=== PATIENT | female | born 1995 | race Caucasian/White ===

== ENCOUNTER 2020-06-18 09:19 | Emergency (ER) | payer OTHER ==
[2020-06-18] MEDS ORDERED: MORPHINE 4 MG/ML SYR ONE (10:28)
[2020-06-18] MEDS ORDERED: ONDANSETRON 4 MG/2 ML VIAL ONE (10:28)
[2020-06-18] MEDS ORDERED: NA CHLORIDE 0.9% 1,000 ML ONE (10:29)
[2020-06-18 10:57] LABS: Absolute Lymphocytes (CBC) 0.6 K/uL (0.7-4.9); Basophils % 0.7 % (0-1.3); Hematocrit 32.8 % (36.0-45.0); Lymphocytes % 3.9 % (15.3-44.8); MPV 9.1 fL (7.6-11.3); RBC Red Blood Cell Count 3.85 M/uL (3.86-4.86)
[2020-06-18 11:07] LABS: ALT/SGPT 19 U/L (12-78); AST/SGOT 18 U/L (15-37); Albumin 3.4 g/dL (3.4-5.0); Alkaline Phosphatase 71 U/L (45-117); BUN Blood Urea Nitrogen 10 mg/dL (7-18); Bicarbonate 22 mmol/L (21-32); Bilirubin Direct < 0.1 mg/dL (0-0.2); Bilirubin Total 0.3 mg/dL (0.2-1.0); Glucose Level 92 mg/dL (74-106); Lipase 60 U/L (73-393); Potassium 3.6 mmol/L (3.5-5.1); Protein, Total 7.7 g/dL (6.4-8.2); Sodium Level 139 mmol/L (136-145)
--- NOTE | 2020-06-18 11:36 | RAD REPORT ---
EXAM DESCRIPTION: CT - Abdomen Pelvis W Contrast - 06/18/2020 11:18 am CLINICAL HISTORY: ABD PAIN COMPARISON: No comparisons TECHNIQUE: Biphasic, helical CT imaging of the abdomen and pelvis was performed following 100 ml non -ionic IV contrast. No oral contrast. All CT scans are performed using dose optimization technique as appropriate and may include automated exposure control or mA/KV adjustment according to patient size. FINDINGS: No suspicious findings in the lung bases. The liver, spleen, and pancreas show no suspicious findings. Gallbladder and biliary tree are also wi thout suspicious finding. Renal function is symmetric. No hydronephrosis. No obstructing or nonobstructing calculi. Several sma ll renal cysts are present. There is some additional heterogeneity and diminished attenuation in the right renal parenchyma. No solid mass lesion of either kidney. There is questionable trace fluid aime cent to the right kidney. Urinary bladder is mostly contracted. Narvaez are prominent. This is difficul t to further evaluate in the setting of low bladder volume. No adrenal abnormalities. No gastric dilatation or wall thickening. No dilated large or small bowel loops. Moderate stool volum e is present throughout the colon. Patient has a paucity of intraabdominal fat. This causes crowding of all the abdominal and pelvic structures diminishing well-defined boundaries. Several fluid filled nondilated small bowel loops are present. The fluid-filled tubular structures are favored to be bowel rather than fallopian tube dilatation. A 3 x 2 centimeter fluid attenuation in the anterior right lo wer quadrant is probably part of fluid filled bowel rather than an ovarian or paraovarian cyst. The a ppendix is not optimally visualized but does appear to be normal in size along the right lateral pelv ic side wall. No free air or pneumatosis. No abnormal free fluid collections seen. Uterine abnormality is not adam pected. No hernia, mass or bulky lymphadenopathy. No suspicious bony findings. IMPRESSION: Slight heterogeneity of the right renal parenchyma is present along with mildly accentua sean urinary bladder narvaez. Correlation is needed with any history or lab findings that would indicate mild pyelonephritis and cystitis. Patient has some fluid-filled small bowel loops and a prominent amount of stool filling but not dilat ing the colon. Appendix is not optimally visualize ; however, acute appendicitis is not suspected.
[2020-06-18 11:49] LABS: Urine Bacteria LOADED /HPF (<20); Urine Culture Reflex Order REFLEXED
--- NOTE | 2020-06-18 11:58 | ER ---
Nurse's Notes [facility] Name: Zack Mansfield Age: 24 yrs Sex: Female : 1995 Arrival Date: 06/18/2020 Time: : Bed 5 Private MD: Diagnosis: Acute tubulo-interstitial nephritis-right pyelonephritis Presentation: 06/18 09:40 Chief complaint: Patient states: RLQ pain radiating through back X 2 days, vomiting iw Friday, fever yesterday, no urinary s/s. Coronavirus screen: At this time, the client does not indicate any symptoms associated with coronavirus-19. Ebola Screen: Patient negative for fever greater than or equal to 101.5 degrees Fahrenheit, and additional compatible Ebola Virus Disease symptoms Patient denies exposure to infectious person. Patient denies travel to an Ebola-affected area in the 21 days before illness onset. No symptoms or risks identified at this time. Initial Sepsis Screen: Does the patient meet any 2 criteria? HR > 90 bpm. Does the patient have a suspected source of infection? No. Patient's initial sepsis screen is negative. Risk Assessment: Do you want to hurt yourself or someone else? Patient reports no desire to harm self or others. Onset of symptoms was June 16, 2020. 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 - Social history:: Smoking status: Patient denies any tobacco usage or history of. Screenin:34 Abuse screen: Denies threats or abuse. Denies injuries from another. Nutritional ph screening: No deficits noted. Tuberculosis screening: No symptoms or risk factors identified. Fall Risk None identified. Assessment: 09:48 General: Appears in no apparent distress. uncomfortable, slender, well groomed, ph Behavior is calm, cooperative, appropriate for age, Reports chills for fever for 2-3 days. Pain: Complains of pain in posterior aspect of right lateral abdomen, anterior aspect of right lateral abdomen and right lower quadrant. Neuro: Level of Consciousness is awake, alert, obeys commands, Oriented to person, place, time, situation. Cardiovascular: Capillary refill < 3 seconds in bilateral fingers Patient's skin is warm and dry. GI: Abdomen is flat, non-distended, Abdomen is tender to palpation in posterior aspect of right lateral abdomen, anterior aspect of right lateral abdomen and right lower quadrant Reports lower abdominal pain, nausea, Patient currently denies diarrhea, vomiting. : Reports pain in right flank(s), lower quadrant(s) in lower back Denies burning with urination, urinary frequency. Derm: Skin is intact, is healthy with good turgor, Skin is pink, warm \T\ dry. Musculoskeletal: Circulation, motion, and sensation intact. Range of motion: intact in all extremities. 11:37 Reassessment: Patient appears in no apparent distress at this time. Patient and/or ph family updated on plan of care and expected duration. Pain level reassessed. Patient is alert, oriented x 3, equal unlabored respirations, skin warm/dry/pink. 12:15 Reassessment: Patient appears in no apparent distress at this time. Patient and/or ph family updated on plan of care and expected duration. Pain level reassessed. Patient is alert, oriented x 3, equal unlabored respirations, skin warm/dry/pink. D/C pending completion of IV fluids, approx 300 cc left in bag. Vital Signs: 09:40 BP 115 / 88; Pulse 109; Resp 16 S; Temp 100(TE); Pulse Ox 99% on R/A; Weight 61.23 kg; iw Height 5 ft. 9 in. (175.26 cm); Pain 8/10; 10:30 BP 98 / 68; Pulse 91; Resp 18; Pulse Ox 100% on R/A; ph 11:37 BP 113 / 67; Pulse 82; Resp 18; Pulse Ox 100% on R/A; ph 12:17 BP 111 / 64; Pulse 79; Resp 18; Temp 98.9; Pulse Ox 100% on R/A; ph 09:40 Body Mass Index 19.94 (61.23 kg, 175.26 cm) iw ED Course: 09:26 Patient arrived in ED. mr 09:34 Johnson, Carmenza, RN is Primary Nurse. ph 09:35 Patient has correct armband on for positive identification. Placed in gown. Bed in low ph position. Call light in reach. Side rails up X 1. Pulse ox on. NIBP on. Door closed. Noise minimized. 09:38 Vazquez Corbin NP is PHCP. pm1 09:38 Garth Beckwith MD is Attending Physician. pm1 09:42 Triage completed. iw 09:44 Arm band placed on. iw 10:25 Inserted saline lock: 20 gauge in left antecubital area, using aseptic technique. Blood ph collected. 12:43 No provider procedures requiring assistance completed. IV discontinued, intact, ph bleeding controlled, No redness/swelling at site. Pressure dressing applied. Administered Medications: 10:28 Drug: Zofran (Ondansetron) 4 mg Route: IVP; Site: right antecubital; ph 11:35 Follow up: Response: No adverse reaction; Nausea is decreased ph 10:30 Drug: morphine 4 mg Route: IVP; Site: right antecubital; ph 11:34 Follow up: Response: No adverse reaction; Pain is decreased; RASS: Alert and Calm (0) ph 11:15 Drug: NS 0.9% 1000 ml Route: IV; Rate: 1000 ml; Site: left antecubital; ph 12:40 Follow up: Response: No adverse reaction; IV Status: Completed infusion; IV Intake: ph 1000ml 12:00 Drug: Rocephin 1 grams Route: IV; Rate: calculated rate; Site: left antecubital; ph 12:39 Follow up: Response: No adverse reaction; IV Status: Completed infusion ph 12:15 Drug: Hydrocodone-Acetaminophen (7.5 mg-325 mg) 1 tabs Route: PO; ph 12:40 Follow up: Response: No adverse reaction; Pain is decreased; RASS: Alert and Calm (0) ph Intake: 12:40 IV: 1000ml; Total: 1000ml. ph Outcome: 11:58 Discharge ordered by . pm1 12:43 Discharged to home ambulatory, with significant other. ph 12:43 Condition: improved 12:43 Discharge instructions given to patient, Instructed on discharge instructions, follow up and referral plans. medication usage, Demonstrated understanding of instructions, follow-up care, medications, Prescriptions given X 3. 12:43 Patient left the ED. ph Addendum: 06/21/2020 07:41 Addendum: Culture Results: Positive urine culture. No further action required. Bacteria s s sensitive to prescribed antibiotic. Signatures: Izzy Dominguez Irene, RN MCKENNA Ann Barrett RN RN Carmenza Johnson, RN RN Vazquez Corbin, PUTTYING AND CALKING SUPERVISOR PUTTYING AND CALKING SUPERVISOR pm1
--- NOTE | 2020-06-18 11:58 | EDPHYS ---
Physician Documentation [facility] Name: Zack Mansfield Age: 24 yrs Sex: Female : 1995 Arrival Date: 06/18/2020 Time: : Bed 5 Private MD: ED Physician Garth Beckwith HPI: 06/18 11:34 This 24 yrs old Female presents to ER via Ambulatory with complaints of pm1 Abdominal Pain. 11:34 The patient presents with abdominal pain right lower quadrant. Onset: The pm1 symptoms/episode began/occurred 2 day(s) ago. The symptoms do not radiate. Associated signs and symptoms: Pertinent positives: fever, nausea, Pertinent negatives: dysuria. The symptoms are described as sharp. Modifying factors: The symptoms are alleviated by leaning forward. Severity of pain: in the emergency department the pain is actually worse. The patient has not experienced similar symptoms in the past. The patient has not recently seen a physician, and does not have an established primary care provider, Was planning to see Dr. Leger to establish care. 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 - Social history:: Smoking status: Patient denies any tobacco usage or history of. ROS: 11:36 Eyes: Negative for injury, pain, redness, and discharge. pm1 11:36 Cardiovascular: Negative for chest pain, palpitations, and edema, Respiratory: Negative for shortness of breath, cough, wheezing, and pleuritic chest pain. 11:36 Back: Negative for injury and pain, : Negative for injury, bleeding, discharge, and swelling, MS/Extremity: Negative for injury and deformity, Skin: Negative for injury, rash, and discoloration, Neuro: Negative for headache, weakness, numbness, tingling, and seizure. 11:36 Constitutional: Positive for fever, Negative for poor PO intake. 11:36 Abdomen/GI: Positive for abdominal pain, nausea and vomiting, Negative for constipation. Exam: 11:36 Constitutional: This is a well developed, well nourished patient who is awake, alert, pm1 and in no acute distress. Head/Face: Normocephalic, atraumatic. 11:36 Skin: Warm, dry with normal turgor. Normal color with no rashes, no lesions, and no evidence of cellulitis. MS/ Extremity: Pulses equal, no cyanosis. Neurovascular intact. Full, normal range of motion. 11:36 Cardiovascular: Exam negative for acute changes, Rate: normal, Rhythm: regular, Pulses: no pulse deficits are appreciated. 11:36 Respiratory: Exam negative for acute changes, respiratory distress, shortness of breath. 11:36 Abdomen/GI: Inspection: abdomen appears normal, Palpation: soft, in the right lower quadrant, mild abdominal tenderness, rebound tenderness, is not appreciated. 11:36 Back: normal spinal alignment noted, CVA tenderness, that is mild, is noted on the right. 11:36 Neuro: Exam negative for acute changes, Orientation: is normal, Mentation: is normal, Motor: is normal, moves all fours. Vital Signs: 09:40 BP 115 / 88; Pulse 109; Resp 16 S; Temp 100(TE); Pulse Ox 99% on R/A; Weight 61.23 kg; iw Height 5 ft. 9 in. (175.26 cm); Pain 8/10; 10:30 BP 98 / 68; Pulse 91; Resp 18; Pulse Ox 100% on R/A; ph 11:37 BP 113 / 67; Pulse 82; Resp 18; Pulse Ox 100% on R/A; ph 12:17 BP 111 / 64; Pulse 79; Resp 18; Temp 98.9; Pulse Ox 100% on R/A; ph 09:40 Body Mass Index 19.94 (61.23 kg, 175.26 cm) iw MDM: 09:38 Patient medically screened. pm1 11:56 Data reviewed: vital signs. Data interpreted: Pulse oximetry: on room air is 100 %. pm1 Interpretation: normal. Counseling: I had a detailed discussion with the patient and/or guardian regarding: the historical points, exam findings, and any diagnostic results supporting the discharge/admit diagnosis, lab results, radiology results, the need for outpatient follow up, to return to the emergency department if symptoms worsen or persist or if there are any questions or concerns that arise at home. 12:14 ED course: Patient reports history of multiple UTIs in the past as a child before the pm1 age of 1. Has not had a UTI since then. Covered patient with Rocephin here in the ER and will prescribe quinolone empirically for pyelonephritis treatment. 06/18 09:49 Order name: Flu pm1 06/18 09:49 Order name: Strep pm1 06/18 09:49 Order name: COVID-19 pm1 06/18 09:49 Order name: Basic Metabolic Panel pm1 06/18 09:49 Order name: CBC with Diff pm1 06/18 09:49 Order name: Hepatic Function pm1 06/18 09:49 Order name: Lipase pm1 06/18 10:52 Order name: Urine Microscopic Only 1 06/18 10:56 Order name: Urine Dipstick--Ancillary (enter results) 06/18 10:56 Order name: Urine --Ancillary (enter results) 06/18 11:00 Order name: CBC with Automated Diff EDRI 06/18 11:07 Order name: Basic Metabolic Panel; Complete Time: 11:22 EDMS 06/18 11:07 Order name: Liver (Hepatic) Function; Complete Time: 11:22 EDMS 06/18 11:07 Order name: Lipase; Complete Time: 11:22 EDRI 06/18 09:49 Order name: IV Saline Lock; Complete Time: 10:36 pm1 06/18 09:49 Order name: Labs collected and sent; Complete Time: 10:36 pm1 06/18 09:49 Order name: CT Abd/Pelvis - IV Contrast Only 1 06/18 11:36 Order name: CT; Complete Time: 11:36 EDRI 06/18 11:49 Order name: Urine Microscopic Only; Complete Time: 11:59 EDMS 06/18 12:42 Order name: Urine --Ancillary EDRI 06/18 12:42 Order name: Urine Dipstick-Ancillary EDMS Administered Medications: 10:28 Drug: Zofran (Ondansetron) 4 mg Route: IVP; Site: right antecubital; ph 11:35 Follow up: Response: No adverse reaction; Nausea is decreased ph 10:30 Drug: morphine 4 mg Route: IVP; Site: right antecubital; ph 11:34 Follow up: Response: No adverse reaction; Pain is decreased; RASS: Alert and Calm (0) ph 11:15 Drug: NS 0.9% 1000 ml Route: IV; Rate: 1000 ml; Site: left antecubital; ph 12:40 Follow up: Response: No adverse reaction; IV Status: Completed infusion; IV Intake: ph 1000ml 12:00 Drug: Rocephin 1 grams Route: IV; Rate: calculated rate; Site: left antecubital; ph 12:39 Follow up: Response: No adverse reaction; IV Status: Completed infusion ph 12:15 Drug: Hydrocodone-Acetaminophen (7.5 mg-325 mg) 1 tabs Route: PO; ph 12:40 Follow up: Response: No adverse reaction; Pain is decreased; RASS: Alert and Calm (0) ph Disposition: 14:53 Co-signature as Attending Physician, Garth Beckwith MD I agree with the assessment and kdr plan of care. Disposition: 06/18/20 11:58 Discharged to Home. Impression: Acute tubulo-interstitial nephritis - right pyelonephritis. - Condition is Stable. - Discharge Instructions: Pyelonephritis, Adult. - Prescriptions for Cipro 500 mg Oral Tablet - take 1 tablet by ORAL route every 12 hours for 7 days; 14 tablet. Zofran 4 mg Oral Tablet - take 1 tablet by ORAL route every 12 hours As needed; 20 tablet. Tramadol 50 mg Oral Tablet - take 1 tablet by ORAL route every 8 hours as needed; 12 tablet. - Medication Reconciliation Form, Thank You Letter, Antibiotic Education, Prescription Opioid Use form. - Follow up: Emergency Department; When: As needed; Reason: Worsening of condition. Follow up: Private Physician; When: 2 - 3 days; Reason: Recheck today's complaints, Continuance of care, Re-evaluation by your physician. - Problem is new. - Symptoms have improved. Signatures: Dispatcher [employer] EDMS Garth Beckwith MD MD kdr Magali Yu RN RN iw Carmenza Johnson RN RN ph Vazquez Corbin, [facility] MANAGER pm1 Corrections: (The following items were deleted from the chart) 12:43 11:58 06/18/2020 11:58 Discharged to Home. Impression: Acute tubulo-interstitial ph nephritis - right pyelonephritis. Condition is Stable. Forms are Medication Reconciliation Form, Thank You Letter, Antibiotic Education, Prescription Opioid Use. Follow up: Emergency Department; When: As needed; Reason: Worsening of condition. Follow up: Private Physician; When: 2 - 3 days; Reason: Recheck today's complaints, Continuance of care, Re-evaluation by your physician. Problem is new. Symptoms have improved. pm1
[2020-06-18] MEDS ORDERED: CEFTRIAXONE/SWI 1gm 1 GM/10 ML SYR ONE (12:02)
[2020-06-18] MEDS ORDERED: HYDROCODONE/APAP 7.5/325 MG TAB ONE (12:26)
[2020-06-18 12:42] LABS: Urine Blood 2+ (NEG); Urine Glucose NEGATIVE (NEG); Urine Protein 1+ (NEG); Urine Specific Gravity 1.025 (1.005-1.030); Urine pH 5.5 (5.0-7.0)
[2020-06-18 12:44] LABS: Blood Morphology Comment NOT SEEN (NOT SEEN); Platelet Estimate ADEQ
[2020-06-18 12:53] VITALS: O2SAT 100
[2020-06-18 12:55] VITALS: BP 111/64; TEMP 98.9
== END 2020-06-18 12:43 | disposition home or self-care (01) ==
LOC: EDSEX 09:19 → ER 09:19
DX: N10 Acute pyelonephritis (principal); Z20.828 Contact with and (suspected) exposure to other viral communicable diseases
CPT/HCPCS: 96365; 96361; 87070; 87088; 85025; 87086; 80048; 36415; 81025; 82565; 80076; 87081; 87077; 87186; 83690; 87804 ×2; 74177; 96375; 99284; U0002; Q9967; J0696; J7030; J2405; 81003; 81015

== ENCOUNTER 2020-06-19 05:37 | Emergency (ER) | payer OTHER ==
[2020-06-19] MEDS ORDERED: MORPHINE 4 MG/ML SYR ONE (06:31)
[2020-06-19] MEDS ORDERED: NA CHLORIDE 0.9% 1,000 ML ONE (06:31)
[2020-06-19] MEDS ORDERED: ONDANSETRON 4 MG/2 ML VIAL ONE (06:31)
[2020-06-19 06:44] LABS: Absolute Lymphocytes (CBC) 1.3 K/uL (0.7-4.9); Basophils % 0.2 % (0-1.3); Lymphocytes % 7.2 % (15.3-44.8); MPV 8.7 fL (7.6-11.3); RBC Red Blood Cell Count 3.87 M/uL (3.86-4.86)
[2020-06-19 06:55] LABS: Potassium 3.5 mmol/L (3.5-5.1)
--- NOTE | 2020-06-19 08:25 | RAD REPORT ---
EXAM DESCRIPTION: CT - Abdomen Pelvis W Contrast - 06/19/2020 8:06 am CLINICAL HISTORY: ABD PAIN COMPARISON: Abdomen Pelvis W Contrast dated 06/18/2020 TECHNIQUE: Biphasic, helical CT imaging of the abdomen and pelvis was performed following 100 ml non -ionic IV contrast. Oral contrast was given. All CT scans are performed using dose optimization technique as appropriate and may include automated exposure control or mA/KV adjustment according to patient size. FINDINGS: No suspicious findings in the lung bases. Liver size remains prominent but without a focal parenchymal mass lesion. Patient has developed a per iportal edema pattern since the prior day study. This is nonspecific. This can be seen with hepatitis as well as a systemic response to distant disease. No splenomegaly or focal splenic finding. No acut e pancreatic process identifiable. Hyperdense material within the lumen of the gallbladder is probabl y vicarious excretion of contrast. Stones and sludge can be occult on CT imaging. No wall thickening or edema suspected. Biliary tree is not dilated. No hydronephrosis and no obstructing or nonobstructing calculi identifiable. Phlebolith is seen in th e floor the pelvis on the left. Renal function is symmetric. There is a trace amount of fluid or kellie a in the right perinephric fat. Multiple right renal cysts are present. Right renal parenchyma remain s slightly heterogeneous. Pyelonephritis is not excluded. There is no evidence for a progressive proc ess of the renal parenchyma. Well filled urinary bladder shows no wall thickening or edema. No adrena l abnormalities. No uterine abnormality seen. Left ovary is unremarkable. No right ovarian process abbasi spected. The fluid-filled 3 centimeter collection anterior right lower pelvis does not persist. This area is w ell opacified by the oral contrast in the prior day finding was fluid within bowel. No gastric dilatation or wall thickening. No dilated small bowel loops. Moderate stool volume is pres ent in the colon. Oral contrast has reached the distal rectum. Air filled, nondilated appendix is maya ntified. Free fluid in the pelvis is present increased in volume since prior imaging. This is still within phy siologic limits. No hernia, mass or bulky lymphadenopathy. No free air or pneumatosis. No suspicious bony findings. IMPRESSION: No obstruction, free air or other surgically emergent finding. Right renal parenchyma remains slightly heterogeneous and there is minimal amount of fluid in the per inephric fat when compared to the left. Right-sided pyelonephritis is not excluded and needs correla tion with clinical findings and UA findings. No acute GI process identifiable. Normal size, air-filled appendix is seen. No acute SOLAR INSTALLATION SUPERVISOR process identified. Free fluid in the dependent portion of the pelvis has increased. The patient now has a periportal blanco ma pattern in the liver. This is nonspecific but can be seen with hepatitis or as a systemic response to a disease process not clearly evident from this examination.
[2020-06-19] MEDS ORDERED: FENTANYL CITR 100 MCG/2 ML ONE (08:51)
[2020-06-19 09:01] LABS: Albumin 3.3 g/dL (3.4-5.0); Bilirubin Direct 0.1 mg/dL (0-0.2); Bilirubin Total 0.4 mg/dL (0.2-1.0); Protein, Total 8.4 g/dL (6.4-8.2)
--- NOTE | 2020-06-19 09:11 | EDPHYS ---
Physician Documentation [facility] Name: Zack Mansfield Age: 24 yrs Sex: Female : 1995 Arrival Date: 06/19/2020 Time: 05:39 Bed 13 Private MD: ED Physician Spencer Fowler HPI: 06/19 06:56 This 24 yrs old Female presents to ER via Wheelchair with complaints of kb Possible Kidney Stone. 06:56 The patient complains of pain in the right flank. The pain radiates to the right lower kb quadrant. Onset: The symptoms/episode began/occurred 3 day(s) ago. Modifying factors: The symptoms are alleviated by nothing. the symptoms are aggravated by movement, palpation/percussion. Associated signs and symptoms: Pertinent positives: fever. Severity of pain: At its worst the pain was moderate in the emergency department the pain is unchanged. The patient has not experienced similar symptoms in the past. The patient has been recently seen at the [facility] Emergency Department, yesterday, for similar complaints labs were performed, CT scan was performed. 06:58 Pt reports right flank pain that started 3 days ago. States the pain radiates to RLQ. kb Reports pain has continued to be severe, even after taking pain medication that she was prescribed yesterday. 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 - Social history:: Smoking status: Patient uses alcohol, occasionally. Patient/guardian denies using. ROS: 06:56 Constitutional: Negative for fever, chills, and weight loss, Cardiovascular: Negative kb for chest pain, palpitations, and edema, Respiratory: Negative for shortness of breath, cough, wheezing, and pleuritic chest pain, MS/Extremity: Negative for injury and deformity, Skin: Negative for injury, rash, and discoloration, Neuro: Negative for headache, weakness, numbness, tingling, and seizure. 06:56 Abdomen/GI: Positive for abdominal pain, Negative for nausea, vomiting, and diarrhea. 06:56 Back: Positive for pain at rest, pain with movement, flank pain, on the right. Exam: 06:55 Head/Face: Normocephalic, atraumatic. Chest/axilla: Normal chest wall appearance and kb motion. Nontender with no deformity. No lesions are appreciated. Cardiovascular: Regular rate and rhythm with a normal S1 and S2. No gallops, murmurs, or rubs. Normal PMI, no JVD. No pulse deficits. Respiratory: Lungs have equal breath sounds bilaterally, clear to auscultation and percussion. No rales, rhonchi or wheezes noted. No increased work of breathing, no retractions or nasal flaring. Skin: Warm, dry with normal turgor. Normal color with no rashes, no lesions, and no evidence of cellulitis. MS/ Extremity: Pulses equal, no cyanosis. Neurovascular intact. Full, normal range of motion. Neuro: Awake and alert, GCS 15, oriented to person, place, time, and situation. Cranial nerves II-XII grossly intact. Motor strength 5/5 in all extremities. Sensory grossly intact. Cerebellar exam normal. Normal gait. 06:55 Constitutional: The patient appears alert, awake, in obvious pain. 06:55 Abdomen/GI: Inspection: abdomen appears normal, Bowel sounds: normal, in all quadrants, Palpation: soft, in all quadrants, mild abdominal tenderness, in the right lower quadrant. 06:55 Back: CVA tenderness, that is moderate, is noted on the right. Vital Signs: 05:54 BP 108 / 68; Pulse 92; Resp 18; Temp 99.5; Pulse Ox 100% ; Weight 61.23 kg; Height 5 wh ft. 9 in. (175.26 cm); Pain 9/10; 07:00 BP 93 / 59; Pulse 77; Resp 16; Pulse Ox 94% ; bp 08:00 BP 99 / 61; Pulse 86; Resp 16; Pulse Ox 100% ; bp 09:02 BP 108 / 66; Pulse 87; Resp 16; Pulse Ox 99% ; bp 09:50 BP 104 / 64; Pulse 81; Resp 20; Temp 99.5; Pulse Ox 100% ; bp 05:54 Body Mass Index 19.94 (61.23 kg, 175.26 cm) wh MDM: 06:01 Patient medically screened. kb 06:48 Data reviewed: vital signs, nurses notes. Data interpreted: Pulse oximetry: on room air kb is 100 %. Interpretation: normal. ED course: Labs and CT report reviewed from yesterday's visit. WBC 15.8 yesterday. Urine micro showed loaded bacteria in urine. CT revealed possible mild pyelonephritis and not clearly visualized appendix. Will repeat CT with oral contrast to better assess appendix. . 09:10 Counseling: I had a detailed discussion with the patient and/or guardian regarding: the kb historical points, exam findings, and any diagnostic results supporting the discharge/admit diagnosis, lab results, radiology results, the need for outpatient follow up, a family practitioner, to return to the emergency department if symptoms worsen or persist or if there are any questions or concerns that arise at home. 06/19 06:09 Order name: Basic Metabolic Panel 06/19 06:09 Order name: CBC with Diff kb 06/19 06:45 Order name: CBC with Automated Diff; Complete Time: 06:48 EDMS 06/19 06:55 Order name: Basic Metabolic Panel; Complete Time: 07:00 EDMS 06/19 08:44 Order name: Hepatic Function 06/19 09:03 Order name: Liver (Hepatic) Function; Complete Time: 09:07 EDMS 06/19 06:09 Order name: IV Saline Lock; Complete Time: 06:24 kb 06/19 06:09 Order name: CT Abd/Pelvis - PO and IV Contrast 06/19 08:26 Order name: CT; Complete Time: 08:27 EDMS 06/19 06:09 Order name: Labs collected and sent; Complete Time: 06:24 kb Administered Medications: 06:20 Drug: NS 0.9% 1000 ml Route: IV; Rate: 1000 ml; Site: right antecubital; wh 09:52 Follow up: IV Status: Completed infusion; IV Intake: 1000ml bp 06:22 Drug: morphine 4 mg Route: IVP; Site: right antecubital; wh 08:24 Follow up: Response: Pain is decreased bp 06:24 Drug: Zofran (Ondansetron) 4 mg Route: IVP; Site: right antecubital; wh 08:24 Follow up: Response: Nausea is decreased bp 08:30 Drug: fentaNYL (PF) 25 mcg Route: IVP; Site: right forearm; bp 09:15 Follow up: Response: Pain is decreased bp 09:20 Drug: Rocephin 1 grams Route: IV; Rate: calculated rate; Site: right forearm; bp 09:53 Follow up: IV Status: Completed infusion; IV Intake: 100ml bp Disposition: 19:03 Co-signature as Attending Physician, Spencer Fowler MD. pk Disposition: 06/19/20 09:10 Discharged to Home. Impression: Acute tubulo-interstitial nephritis. - Condition is Stable. - Discharge Instructions: Pyelonephritis, Adult, [id number]. - Work release form, Medication Reconciliation Form, Thank You Letter, Antibiotic Education, Prescription Opioid Use form. - Follow up: Emergency Department; When: As needed; Reason: Worsening of condition. Follow up: Private Physician; When: 2 - 3 days; Reason: Recheck today's complaints, Continuance of care, Re-evaluation by your physician. Signatures: Dispatcher [employer] EDAkila Patterson, CHELSI SOLIS-Spencer Chahal MD MD pk Christy Brandt Brian, RN RN bp Corrections: (The following items were deleted from the chart) 06:59 06:56 Onset: The symptoms/episode began/occurred yesterday, [facility] 09:53 09:10 06/19/2020 09:10 Discharged to Home. Impression: Acute tubulo-interstitial bp nephritis. Condition is Stable. Forms are Medication Reconciliation Form, Thank You Letter, Antibiotic Education, Prescription Opioid Use. Follow up: Emergency Department; When: As needed; Reason: Worsening of condition. Follow up: Private Physician; When: 2 - 3 days; Reason: Recheck today's complaints, Continuance of care, Re-evaluation by your physician. kb
--- NOTE | 2020-06-19 09:11 | ER ---
Nurse's Notes [facility] Name: Zack Mansfield Age: 24 yrs Sex: Female : 1995 Arrival Date: 06/19/2020 Time: 05:39 Bed 13 Private MD: Diagnosis: Acute tubulo-interstitial nephritis Presentation: 06/19 05:54 Chief complaint: Patient states: C/O RLQ pain radiating to the back. Pt states was here yesterday and was diagnosed with kidney infection and prescribed meds. Pt thinks she has kidney stones as pain is a little more different from yesterday. Coronavirus screen: Client denies travel out of the [place] in the last 14 days. At this time, the client does not indicate any symptoms associated with coronavirus-19. Ebola Screen: Patient negative for fever greater than or equal to 101.5 degrees Fahrenheit, and additional compatible Ebola Virus Disease symptoms Patient denies exposure to infectious person. Initial Sepsis Screen: Does the patient meet any 2 criteria? HR > 90 bpm. Does the patient have a suspected source of infection? Yes: Other: Kidney INfection. Risk Assessment: Do you want to hurt yourself or someone else? Patient reports no desire to harm self or others. Onset of symptoms was June 19, 2020. 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 - Social history:: Smoking status: Patient uses alcohol, occasionally. Patient/guardian denies using. Screenin:01 Abuse screen: Denies threats or abuse. Denies injuries from another. Nutritional screening: No deficits noted. Tuberculosis screening: No symptoms or risk factors identified. Fall Risk None identified. Assessment: 05:59 General: Appears in no apparent distress. uncomfortable, Behavior is calm, cooperative, wh appropriate for age. Pain: Complains of pain in right lower quadrant Pain radiates to right low back Pain currently is 9 out of 10 on a pain scale. Quality of pain is described as dull, sharp, Pain began 1 day ago. Neuro: Level of Consciousness is awake, alert, obeys commands, Oriented to person, place, time, situation, Appropriate for age. Cardiovascular: Heart tones S1 S2. Respiratory: Airway is patent Respiratory effort is even, unlabored, Respiratory pattern is regular, symmetrical, Breath sounds are clear bilaterally. GI: Abdomen is flat, Bowel sounds present X 4 quads. Abd is soft Abdomen is tender to palpation in right lower quadrant. : No signs and/or symptoms were reported regarding the genitourinary system. EENT: No signs and/or symptoms were reported regarding the EENT system. Derm: Skin is intact, is healthy with good turgor, Skin is pink, warm \T\ dry. normal. Musculoskeletal: Circulation, motion, and sensation intact. 07:00 Reassessment: RECD REPORT FROM CHRISTY ANDRES. 24YO WF P/W RLQ PAIN, DX WITH PYELO Y/D. NOW bp R/O APPY. PT DRINKING PO CONTRAST. 07:30 Reassessment: PO CONTRAST COMPLETE, CT NOTIFIED. bp 08:30 Reassessment: PT RETURNED FROM CT, RESULTS PENDING. bp 09:24 Reassessment: D/C ON HOLD FOR ABX. bp 09:50 Reassessment: PT D/C HOME AMBULATORY WITH FAMILY, DX WITH ACUTE PYELO. bp Vital Signs: 05:54 BP 108 / 68; Pulse 92; Resp 18; Temp 99.5; Pulse Ox 100% ; Weight 61.23 kg; Height 5 wh ft. 9 in. (175.26 cm); Pain 9/10; 07:00 BP 93 / 59; Pulse 77; Resp 16; Pulse Ox 94% ; bp 08:00 BP 99 / 61; Pulse 86; Resp 16; Pulse Ox 100% ; bp 09:02 BP 108 / 66; Pulse 87; Resp 16; Pulse Ox 99% ; bp 09:50 BP 104 / 64; Pulse 81; Resp 20; Temp 99.5; Pulse Ox 100% ; bp 05:54 Body Mass Index 19.94 (61.23 kg, 175.26 cm) ED Course: 05:39 Patient arrived in ED. cl3 05:44 Christy Brandt is Primary Nurse. wh 05:59 Triage completed. wh 06:01 Akila Trevino FNP-C [facility]. kb 06:01 Spencer Fowler MD is Attending Physician. kb 06:01 Arm band placed on right wrist. wh 06:01 Patient has correct armband on for positive identification. Bed in low position. Call light in reach. Side rails up X 1. Pulse ox on. NIBP on. 06:57 Primary Nurse role handed off by Christy Brandt bp 06:57 Ashwin Borrego, MCKENNA is Primary Nurse. bp 08:02 CT completed. Patient tolerated procedure well. Patient moved to CT via wheelchair. sw Patient moved to radiology. 09:51 No provider procedures requiring assistance completed. IV discontinued, intact, bp bleeding controlled, No redness/swelling at site. Pressure dressing applied. Administered Medications: 06:20 Drug: NS 0.9% 1000 ml Route: IV; Rate: 1000 ml; Site: right antecubital; wh 09:52 Follow up: IV Status: Completed infusion; IV Intake: 1000ml bp 06:22 Drug: morphine 4 mg Route: IVP; Site: right antecubital; wh 08:24 Follow up: Response: Pain is decreased bp 06:24 Drug: Zofran (Ondansetron) 4 mg Route: IVP; Site: right antecubital; wh 08:24 Follow up: Response: Nausea is decreased bp 08:30 Drug: fentaNYL (PF) 25 mcg Route: IVP; Site: right forearm; bp 09:15 Follow up: Response: Pain is decreased bp 09:20 Drug: Rocephin 1 grams Route: IV; Rate: calculated rate; Site: right forearm; bp 09:53 Follow up: IV Status: Completed infusion; IV Intake: 100ml bp Intake: 09:52 IV: 1000ml; Total: 1000ml. bp 09:53 IV: 100ml; Total: 1100ml. bp Outcome: 09:10 Discharge ordered by . kb 09:51 Discharged to home ambulatory, with family. bp 09:51 Condition: stable 09:51 Discharge instructions given to patient, Instructed on discharge instructions, follow up and referral plans. Demonstrated understanding of instructions, follow-up care. 09:53 Patient left the ED. bp Addendum: 06/21/2020 11:36 Addendum: COVID-19 Result: Negative result given to RN to notify pt. Notified pt of s s negative COVID 19 swab results. Pt advised that even with a negative test result they should remain in isolation until symptom free for 3 days without medication. Pt also advised to return to the ED for worsening symptoms. Signatures: Akila Trevino, NIPPLE THREADER-C NIPPLE THREADER-Ckb Ann Barrett RN RN ss Megan Walden RN RN lp1 Annalise Melgoza Winsy wh Peltier, Brian, RN RN bp Erendira Giraldo cl3 Corrections: (The following items were deleted from the chart) 06/19 06:11 05:54 Acuity: JIE 4 lp1
[2020-06-19] MEDS ORDERED: CEFTRIAXONE/SWI 1gm 1 GM/10 ML SYR ONE (09:31)
[2020-06-19] MEDS ORDERED: NA CHLORIDE 0.9% 100 ML IV ONE (09:31)
[2020-06-19 10:16] VITALS: TEMP 99.5
[2020-06-19 10:18] VITALS: BP 104/64; O2SAT 100
== END 2020-06-19 09:53 | disposition home or self-care (01) ==
LOC: ER 05:37
DX: N10 Acute pyelonephritis (principal); Q79.60 Ehlers-Danlos syndrome, unspecified
CPT/HCPCS: 85025; 80048; 36415; 80076; 74177; 99284; Q9967; J3010; J0696; J7030; J2405; 96361; 96365; 96375

== ENCOUNTER → 2023-11-16 | Emergency (ER) | payer OTHER ==
[~2023-11-16] MED LIST: CEFTRIAXONE 1000 MG/VIAL ONE; KETOROLAC 30 MG/ML INJ ONE; MORPHINE 2 MG/ML SYR ONE; MORPHINE 4 MG/ML SYR ONE; NA CHLORIDE 0.9% 1,000 ML ONE; NA CHLORIDE 0.9% 50 ML ONE; ONDANSETRON 4 MG/2 ML VIAL ONE
--- OUTSIDE RECORDS SUMMARY | 2023-11-16 10:09 | XMS REPORT | Continuity of Care Document ---
Author Name Unknown Address [address] [facility] [address] [place] [address] [facility] thconnect Address [address] [facility] [address] [place] [address] Care Team Providers Care Test Preparation Tutor Name Role Phone Emerson Ivory Attending Clinician Unavailab Juli Teranh Attending Clinician Unavailable Emerson Ivory Admitting Clinician Unavailab le Payers Payer Name Policy Type Policy Number Effective Date Expirati on Date Source [employer] C1 [id number] 2020 00:00:00 [facility] Problems Condition Name Condition Details Condition Category Status Onset Date Resolution Date Last Treatment Date Treating Clinician Comments Source [id number] Abdominal fluid collection Problem Active [facility] Allergies, Adverse Reactions, Alerts Allergy Name Allergy Type Status Severity Reaction(s) Onset Date Inactive Date Treating Clinician Comments Source SUDAFED DA Active [facility] 02-08 00:00: 00 [facility] pseudoep hedrine DA Active [place] HYPERSENSITI VITY 02-08 00:00: 00 [facility] Social History Social Habit Start Date Stop Date Quantity Comments Source History of Tobacco Use Never Smoker [facility] Sex Assigned At [facility] Smoking Status Start Date Stop Date Source Never Smoker [facility] Medications Ordered Medication Name Filled Medication Name Start Date Stop Date Current Medication? Ordering Clinician Indication Dosage Frequency Signature (SIG) Comments Components Source Tramadol HCl Tramadol HCl No Tramadol HCl Tylenol Tylenol No Tylenol Cipro 500 MG Cipro 500 MG No 1{table t} BID Cipro 500 MG Zofran Zofran No Zofran Vital Signs Vital Name Observation Time Observation Value Comments S ource height 2020-06-22 15:30:00 69 [in_i] Commo n [facility] weight 2020-06-22 15:30:00 133.8 [lb_av] Co mmon [facility] temperature 2020-06-22 15:30:00 98.2 [degF] Com mon [facility] bmi 2020-06-22 15:30:00 19.76 kg/m2 Comm on [facility] oximetry 2020-06-22 15:30:00 99 % Commo n [facility] respiratory rate 2020-06-22 15:30:00 16 /min [facility] blood pressure systolic 2020-06-22 15:30:00 122 mm[Hg] [facility] blood pressure diastolic 2020-06-22 15:30:00 67 mm[Hg] [facility] Procedures Procedure Date / Time Performed Performing Clinicia n Source [id number] 2022-02-08 00:00:00 [facility] [id number] 2022-02-08 00:00:00 [facility] [id number] 2022-02-08 00:00:00 [facility] [id number] 2022-02-08 00:00:00 [facility] [id number] 2022-02-08 00:00:00 [facility] [id number] 2022-02-08 00:00:00 [facility] Encounters Start Date/Time End Date/Time Encounter Type Admission Type Attending [facility] Care Facility Care Department Encounter ID Source 2022-02-21 11:47:00 Inpatient Emerson Morales [facility] LD [id number] [facility] 2021-10-17 11:51:12 Outpatient Lonny Arreaga [facility] [id number] [facility] 2022-02-08 09:35:00 2022-02-10 11:44:00 Inpatient Emerson Morales [facility] OBPP [id number] [facility] 2020-06-22 00:00:00 2020-06-22 00:00:00 [facility] [id number] Results Test Description Test Time Test Comments Results Result Co mments Source AG HEPATITIS B [id number] 11:39:00* Test Item Value Reference Range Interpretation Comme [facility] AG HEPATITIS B SURFACE (test code = HBSAG) NON REACTIVE INDEX NonReactive AB HIV 1 11:39:00* Test Item Value Reference Range Interpretation Comme nts AB HIV 1 2 (test code = [id number]) Nonreactive Nonreactive RAPID PLASMA [id number] 11:39:00* Test Item Value Reference Range Interpretation Comme nts RAPID PLASMA REAGIN (test co de = RPR) NONREACTIVE NONREACTIVE CBC W/AUTO [id number] 07:49:00* Test Item Value Reference Range Interpretation Comme nts WHITE BLOOD CELL (test code = WBC) 13.9 x10 3/uL 4.5-11.0 H RED BLOOD CELL (test code = RBC) 3.43 x10 6/uL 3.54-5.02 L HEMOGLOBIN (test code = HGB) 10.7 g/dL 11.0-15.0 L HEMATOCRIT (test code = HCT) 32.4 % 33.0-45.0 L MEAN CELL VOLUME (test code = MCV) 94.5 fL 81.0-99.0 N MEAN CELL HGB (test code = MCH) 31.2 pg 27.0-33.0 N MEAN CELL HGB CONCETRATION (test code = MCHC) 33.0 g/dL 33.0-37.0 N RED CELL DISTRIBUTION WIDTH CV (test code = RDW) 12.7 % 11.5-14.5 N RED CELL DISTRIBUTION WIDTH SD (test code = RDW-SD) 43.5 fL 37.0-54.0 N PLATELET COUNT (test code = PLT) 221 x10 3/uL 150-400 N MEAN PLATELET VOLUME (test code = MPV) 10.7 fL 7.0-9.0 H NEUTROPHIL % (test code = NT%) 81.9 % 56.0-77.0 H IMMATURE GRANULOCYTE % (test code = IG%) 0.5 % 0.0-2.0 N LYMPHOCYTE % (test code = LY%) 10.5 % 14.0-32.0 L MONOCYTE % (test code = MO%) 6.6 % 4.8-9.0 N EOSINOPHIL % (test code = EO%) 0.2 % 0.3-3.7 L BASOPHIL % (test code = BA%) 0.3 % 0.0-2.0 N NUCLEATED RBC % (test code = NRBC%) 0.0 % 0-0 N NEUTROPHIL # (test code = NT#) 11.35 x10 3/uL 2.0-7.6 H IMMATURE GRANULOCYTE # (test code = IG#) 0.07 x10 3/uL 0.00-0.03 H LYMPHOCYTE # (test code = LY#) 1.45 x10 3/uL 1.0-3.8 N MONOCYTE # (test code = MO#) 0.92 x10 3/uL 0.1-0.8 H EOSINOPHIL # (test code = EO#) 0.03 x10 3/uL 0.0-0.2 N BASOPHIL # (test code = BA#) 0.04 x10 3/uL 0.0-0.2 N NUCLEATED RBC # (test code = NRBC#) 0.00 x10 3/uL 0.0-0.1 N MANUAL DIFF REQUIRED (test code = MDIFF) NO CORD ARTERIAL BLOOD [id number] 21:15:00* Test Item Value Reference Range Interpretation Comme nts CORD BLOOD PH (test code = PH/C) 7.30 7.18-7.38 N CORD BLOOD PCO2 (test code = PCO2/C) 51 mmHg 32-66 N CORD BLOOD PO2 (test code = PO2/C) 12 mmHg 6-30 N CORD BLOOD HCO3 (test code = HCO3/C) 25 mmol/L 17-27 N BASE EXCESS CORD (test code = KEE/C) -1.4 mmol/L -8.0-0.0 N O2 SATURATION (test code = O2S/C) 11 % 72-77 L CBG TEMPERATURE (test code = TEMPC) 98 F CORD VENOUS BLOOD [id number] 21:14:00* Test Item Value Reference Range Interpretation Comme nts CORD VENOUS PH (test code = PHCV) 7.39 7.25-7.45 N CORD VENOUS PCO2 (test code = PCO2CV) 33 mmHg 27-49 N CORD VENOUS PO2 (test code = PO2CV) 27 mmHg 17-41 N CORD VENOUS HCO3 (test code = HCO3CV) 20.4 MMOL/L 12-28 N CORD VENOUS BASE EXCESS (esme t code = BEXCV) -4.7 mmol/L -8.0-0.00 N CORD VENOUS 02 SAT (test cod e = O2SCV) 52 % CBG TEMPERATURE (test code = TEMPC) 98 F COVID 19 Asymptomatic IH [id number] 11:01:00* Test Item Value Reference Range Interpretation Comme nts COVID 19 Asymptomatic IH AG (test code = COVNONPUIAG) Negative Negative A negative resul t is presumptive and should be confirmedwith an FDA authorized molecular assay, if necessary forpatient management.A positive result does not rule out co-infections withother pathogens.This test detects both viable (live) and non-viable,SARS-CoV, and SARS-CoV-2. Test performance depends on theamount of virus (antigen) in the sample.This test has not been FDA cleared or approved; the test hasbeen authorized by FDA under an Emergency Use Authorization(EUA) for use by laboratories certified under the CLIA thatmeet the requirements to perform moderate, high or waivedcomplexity tests. CBC W/AUTO [id number] 10:47:00* Test Item Value Reference Range Interpretation Comme nts WHITE BLOOD CELL (test code = WBC) 10.3 x10 3/uL 4.5-11.0 N RED BLOOD CELL (test code = RBC) 3.89 x10 6/uL 3.54-5.02 N HEMOGLOBIN (test code = HGB) 12.2 g/dL 11.0-15.0 N HEMATOCRIT (test code = HCT) 36.3 % 33.0-45.0 N MEAN CELL VOLUME (test code = MCV) 93.3 fL 81.0-99.0 N MEAN CELL HGB (test code = MCH) 31.4 pg 27.0-33.0 N MEAN CELL HGB CONCETRATION (test code = MCHC) 33.6 g/dL 33.0-37.0 N RED CELL DISTRIBUTION WIDTH CV (test code = RDW) 12.6 % 11.5-14.5 N RED CELL DISTRIBUTION WIDTH SD (test code = RDW-SD) 42.9 fL 37.0-54.0 N PLATELET COUNT (test code = PLT) 233 x10 3/uL 150-400 N MEAN PLATELET VOLUME (test c ode = MPV) 9.9 fL 7.0-9.0 H NEUTROPHIL % (test code = NT%) 72.5 % 56.0-77.0 N IMMATURE GRANULOCYTE % (test code = IG%) 0.6 % 0.0-2.0 N LYMPHOCYTE % (test code = LY%) 20.5 % 14.0-32.0 N MONOCYTE % (test code = MO%) 5.7 % 4.8-9.0 N EOSINOPHIL % (test code = EO%) 0.4 % 0.3-3.7 N BASOPHIL % (test code = BA%) 0.3 % 0.0-2.0 N NUCLEATED RBC % (test code = NRBC%) 0.0 % 0-0 N NEUTROPHIL # (test code = NT#) 7.45 x10 3/uL 2.0-7.6 N IMMATURE GRANULOCYTE # (test code = IG#) 0.06 x10 3/uL 0.00-0.03 H LYMPHOCYTE # (test code = LY#) 2.10 x10 3/uL 1.0-3.8 N MONOCYTE # (test code = MO#) 0.58 x10 3/uL 0.1-0.8 N EOSINOPHIL # (test code = EO#) 0.04 x10 3/uL 0.0-0.2 N BASOPHIL # (test code = BA#) 0.03 x10 3/uL 0.0-0.2 N NUCLEATED RBC # (test code = NRBC#) 0.00 x10 3/uL 0.0-0.1 N MANUAL DIFF REQUIRED (test c ode = MDIFF) NO Notes Date/Time Note Provider Source 2022-02-10 09:40:00 [id number]+ZuaAxQBo63YHcUmisrr2325-77-84T76:40:0 0 [facility] ([facility])OB Disch PostpartumREPORT#:[id number] REPORT STATUS: SignedDATE:02/10/22 TIME: 939 PATIENT: ZACK NATH UNIT #: [id number]#: [id number] [address] AGE: 26 SEX: F ATTEND: Emerson Ivory [facility] AUTHOR: Sofia Carter DO * ALL edits or amendments must be made on the electronic/computer document * Subjective SubjectiveAdmission EGA: Weeks: 38 Days: 1Status/day: post (day 2)Patient reports: Patient reports: Yes: normal lochia, pain management effective, tolerating po well, voiding well, tolerating ambulation. No: complaints. Objective GeneralVS:Vital Signs Date Temp Pulse Resp B/P B/P Mean Pulse Ox FiO2 02/09-02/10 98.0-98.7 78-85 16-18 107-122/70-72 97-98 Last Documented: Result Date Time Pulse Ox 98 02/10 0000 B/P 122/70 02/10 0000 Temp 98.6 02/10 0000 Pulse 84 05/ 0000 Resp 17 02/10 0000 B/P Mean 93.0 02/09 0013 PATIENT WEIGHT: Weight (lb): 158Weight (oz): 4.67Weight (kg): 71.800 Physical ExamCardiac: normal rhythmLungs: clear to auscultationNeuro: Exam: alert, oriented j3Pxglfwl: post gravid, soft, no abnormal tendernessUterus: involution appropriate, non-tenderFundus: firm, below the umbilicusLochia: normalVulva/Perineum: normal, no hematomaLower extremities: Edema: none ResultsFindings/Data:Laboratory Tests: 02/09 02/08 02/08 0425 1015 1010Hematology WBC (4.5 - 11.0 x10 3/uL) 13.9 H 10.3 RBC (3.54 - 5.02 x10 6/uL) 3.43 L 3.89 Hgb (11.0 - 15.0 g/dL) 10.7 L 12.2 Hct (33.0 - 45.0 %) 32.4 L 36.3 MCV (81.0 - 99.0 fL) 94.5 93.3 MCH (27.0 - 33.0 pg) 31.2 31.4 MCHC (33.0 - 37.0 g/dL) 33.0 33.6 RDW (11.5 - 14.5 %) 12.7 12.6 Plt Count (150 - 400 x10 3/uL) 221 233 MPV (7.0 - 9.0 fL) 10.7 H 9.9 H Neut % (Auto) (56.0 - 77.0 %) 81.9 H 72.5 Lymph % (Auto) (14.0 - 32.0 %) 10.5 L 20.5 Merrick % (Auto) (4.8 - 9.0 %) 6.6 5.7 Eos % (Auto) (0.3 - 3.7 %) 0.2 L 0.4 Baso % (Auto) (0.0 - 2.0 %) 0.3 0.3 Neut # (Auto) (2.0 - 7.6 x10 3/uL) 11.35 H 7.45 Lymph # (Auto) (1.0 - 3.8 x10 3/uL) 1.45 2.10 Merrick # (Auto) (0.1 - 0.8 x10 3/uL) 0.92 H 0.58 Eos # (Auto) (0.0 - 0.2 x10 3/uL) 0.03 0.04 Baso # (Auto) (0.0 - 0.2 x10 3/uL) 0.04 0.03 Abs Immat Gran (auto) (0.00 - 0.03 x10 3/uL) 0.07 H 0.06 H Add Manual Diff NO NO Immature Gran % (0.0 - 2.0 %) 0.5 0.6 Nucleated RBC % (0 - 0 %) 0.0 0.0 Nucleated RBCs # (Man) (0.0 - 0.1 x10 3/uL) 0.00 0.00Serology RPR (NONREACTIVE) NONREACTIVE Hep Bs Antigen (NonReactive INDEX) NON REACTIVE HIV 1 2 Antibody Screen (Nonreactive) Nonreactive SARS-CoV-2 Ag (Rapid) (Negative) Negative Discharge Summary GeneralProblem List/A P: 1. care following vaginal delivery Assessment: nml progressDate of admission:Date of admission: 02/08/22 Admission diagnosis: PROM-termHospital course: induction of labor, spontaneous vag deliveryProcedures: vacuum vaginal delivery (abnormal heart tones)Discharge condition: stableDischarge to: Home/Self CareDischarge diagnosis: full-term uncomp deliveryDischarge management: less than 30 minsTime spent: >50% spent on counseling/coordination of care: yesBaby A: Vaginal delivery: operative vag del vacuum status: live born Gender: male 1 minute: 8 5 minutes: 8Nursing data:The data set between the solid lines has been imported from nursing documentation. Any exceptions have been noted below under Provider comments. Delivery date infant A: 02/08/22 Delivery time infant A: 2054Birthweight (gm) infant A: 2800Feeding preference: Gender A: MaleApgar 1 minute infant A: 8Apgar 5 minutes infant A: 8Apgar 10 minutes infant A: Provider comments on imported nursing data: [] Plan: routine care, discharge todayVaginal packing at delivery: No Discharge InstructionsInstructions: routine instr sheet given, instr and warnings rev'dDiet: RegularActivity: No Hartline for 6 Wks, No Swimming, Nothing in vagina pre f/uAdditional discharge routines: Attending Follow-UpContraception discussed: abstinence for 4-6 weeks, will discuss at PP visitDischarge meds:Continue taking these medications:PNV WITH FE FUMARATE/FA () 1 EACH TAB 1 TABLET ORAL DAILY. FERROUS SULFATE (FEOSOL) 325 MG TAB 325 MILLIGRAM ORAL DAILY. Start taking the following new medications:HYDROcodone/APAP (NORCO 5/325) 1 TAB TAB 1 TABLET ORAL EVERY 4 HOURS NEEDED. as needed for PAIN SCALE 4-6 Qty = 10 No Refills IBUPROFEN (MOTRIN) 800 MG TAB 800 MILLIGRAM ORAL EVERY 8 HR NEEDED. as needed for PAIN SCALE 1-3 Qty = 30 No Refills DOCUSATE SODIUM (COLACE) 100 MG CAP 100 MILLIGRAM ORAL TWICE DAILY. Qty = 60 No Refills Prescriptions: e-prescribe Add'l Follow-up AppointmentsAttending Physician: Attending Physician: Emerson Ivory MD Attending physician follow up timeframe: In 5-6 weeks at 0944 RPT #:[id number] OF REPORTCLClinical [id number]:40:00G.[id number] able for patient [id number]:44:50 [facility] 2022-02-09 06:10:00 [id number]+[id number] xpM+LNRoABC+05oElAhlxyB9g/maPbl4288-05-03I99:10:0 0 [facility] ([facility])OB Postpart Progr NoteREPORT#:[id number] REPORT STATUS: SignedDATE:02/09/22 TIME: 0610 PATIENT: ZACK NATH UNIT #: [id number]#: [id number] [address] AGE: 26 SEX: F ATTEND: Emerson Ivory [facility] AUTHOR: Sofia Carter DO * ALL edits or amendments must be made on the electronic/computer document * Subjective SubjectiveAdmission EGA: Weeks: 38 Days: 1Status/Day: post (day 1)Patient reports: Patient reports: Yes normal lochia, Yes pain management effective, Yes tolerating po well, Yesvoiding well, Yes tolerating ambulationComments:Burning pain when voids. Objective Nursing Documentation ReviewNursing Data:The data set between the solid lines has been imported from nursing documentation. Any exceptions have been noted below under Provider comments. Feeding preference: Post hemorrhage risk score: Low Risk for Hemorrhage. Provider comments on imported nursing data: [] GeneralVS:Vital Signs: Date Time Temp Pulse Resp B/P B/P Pulse O2 O2 Flow FiO2 Mean Ox Delivery Rate 02/09 0415 98.6 79 17 105/63 99 05/21 0120 98.9 87 16 119/75 99 05/21 0013 93.0 05/21 0013 100 05/21 0013 93 133/69 87 05/21 0004 71 100 05/20 2358 85.0 05/20 2358 77 119/63 05/20 2349 73 100 05/20 2343 87.0 05/20 2343 74 115/70 05/20 2334 78 100 05/20 2328 91.0 05/20 2328 81 127/66 05/20 2319 84 98 05/20 2313 97.0 05/20 2313 80 126/87 05/20 2312 80 87 05/20 2304 85 99 05/20 2258 93.0 05/20 2258 85 124/74 05/20 2249 85 95 05/20 2247 86 92 05/20 2243 94.0 05/20 2243 73 126/75 05/20 2234 66 100 05/20 2228 97.0 05/20 2228 76 134/72 05/20 2222 80 93 05/20 2219 68 100 05/20 2214 81 92 05/20 2213 93.0 05/20 2213 73 128/69 05/20 2204 67 99 05/20 2158 99.0 05/20 2158 85 133/77 05/20 2147 97.0 05/20 2147 97.5 90 136/74 05/20 2144 97 97 05/20 2139 95 97 05/20 2134 93 98 05/20 2133 96.0 05/20 2133 86 16 128/76 05/20 2129 84 98 05/20 2124 78 98 05/20 2119 85 99 05/20 2113 92 99 05/20 2112 86.0 05/20 3 76 16 114/68 96 05/20 9 83 99 05/20 2103 81 99 05/20 2058 90 100 05/20 2053 105 100 05/20 2048 77 100 05/20 2043 101.0 05/20 2043 74 168/84 100 05/20 2038 99 98 05/20 2033 91 100 05/20 2028 90.0 05/20 2028 84 134/63 100 05/20 2023 88 100 05/20 2022 87 93 05/20 2018 82 100 05/20 2013 84 100 05/20 2009 80 100 05/20 2006 93 93 05/20 2004 84 100 05/20 1958 84 100 05/20 1956 76 92 05/20 1954 72 100 05/20 1949 71 99 05/20 1945 89.0 05/20 1945 82 146/62 05/20 1944 77 100 05/20 1939 70 100 05/20 1934 71 100 05/20 1929 72 100 05/20 1924 78 100 05/20 1919 83 100 05/20 1917 85 94 05/20 1914 84.0 05/20 1914 72 136/58 98 05/20 1909 73 98 05/20 1904 74 100 05/20 1902 97.6 16 100 05/20 1859 79 100 05/20 1854 77 100 05/20 1849 78 100 05/20 1844 75.0 05/20 1844 67 112/63 100 05/20 1839 73 100 05/20 1834 75 99 05/20 1829 73 91 05/20 1824 80 100 05/20 1819 80 100 05/20 1814 85 100 05/20 1809 72 100 05/20 1804 74 99 05/20 1800 86 94 05/20 1759 85 93 05/20 1754 69 100 05/20 1749 70 100 05/20 1744 97.7 16 05/20 1744 112.0 05/20 1744 164 130/98 100 05/20 1742 73 93 05/20 1739 66 100 05/20 1734 58 100 05/20 1729 73.0 05/20 1729 60 104/56 100 05/20 1724 63 100 05/20 1719 68 100 05/20 1715 82.0 05/20 1715 70 107/66 05/20 1714 67 100 05/20 1709 68 100 05/20 1704 64 100 05/20 1659 83.0 05/20 1659 61 112/60 100 05/20 1654 56 100 05/20 1649 58 98 05/20 1644 62 98 05/20 1643 82.0 05/20 1643 68 121/61 05/20 1639 55 99 05/20 1634 68 100 05/20 1631 77 92 05/20 1629 77 98 05/20 1628 85.0 05/20 1628 98.6 69 16 116/65 99 05/20 1624 62 99 05/20 1619 61 98 05/20 1614 80.0 05/20 1614 65 115/59 98 05/20 1609 74 98 05/20 1604 60 100 05/20 1559 61 99 05/20 1558 86.0 05/20 1558 71 119/66 05/20 1554 67 100 05/20 1549 57 98 05/20 1544 87.0 05/20 1544 54 117/70 98 05/20 1539 62 100 05/20 1534 55 98 05/20 1530 86.0 05/20 1530 57 110/71 05/20 1529 55 98 05/20 1524 68 98 05/20 1519 62 98 05/20 1515 84.0 05/20 1515 68 109/68 05/20 1514 66 99 05/20 1509 59 100 05/20 1504 53 100 05/20 1459 77.0 05/20 1459 53 101/64 98 05/20 1454 57 97 05/20 1449 62 99 05/20 1444 85.0 05/20 1444 61 110/70 97 05/20 1439 63 98 05/20 1434 76 99 05/20 1429 80.0 05/20 1429 67 102/67 99 05/20 1424 74 99 05/20 1419 63 98 05/20 1414 67 97 05/20 1409 70 98 05/20 1404 65 98 05/20 1359 68 98 05/20 1358 78.0 05/20 1358 65 104/65 05/20 1355 89.0 05/20 1355 67 115/73 05/20 1354 63 98 05/20 1352 88.0 05/20 1352 64 113/75 05/20 1349 88.0 05/20 1349 67 112/72 98 05/20 1346 82.0 05/20 1346 68 109/66 05/20 1344 67 98 05/20 1343 87.0 05/20 1343 68 119/65 05/20 1340 87.0 05/20 1340 63 115/72 05/20 1339 66 97 / 1337 85.0 /20 1337 63 117/67 02/08 1334 84.0 02/08 1334 68 113/68 98 / 1331 86.0 02/08 1331 69 111/71 / 1329 74 98 / 1328 90.0 / 1328 80 120/73 /20 1325 87.0 02/08 1325 98.5 71 16 117/69 97 02/08 1324 71 97 02/08 1322 94.0 /20 1322 77 124/77 /20 1319 93.0 /20 1319 81 124/75 99 / 1315 104.0 02/08 1315 83 131/86 02/08 1314 96 98 02/08 0941 92.0 02/08 0941 77 115/77 20 0913 80.0 / 0913 98.5 74 16 106/65 100 PATIENT WEIGHT: Weight (lb): 158Weight (oz): 4.67Weight (kg): 71.800 Physical ExamCardiac: normal sinus rhythmLungs: clear to auscultationNeuro: Exam: alert, oriented x3, normal speechAbdomen: soft, no abnormal tendernessUterus: involution appropriate, non-tenderFundus: firm, below the umbilicusLochia: normalLacerations: Perineal laceration(s): 1st Degree w/vaginaVulva/Perineum: normal, no hematomaLower extremities: Edema: none ResultFindings/Data:Laboratory Tests: 02/08 02/08 1015 1010 Hematology WBC (4.5 - 11.0 x10 3/uL) 10.3 RBC (3.54 - 5.02 x10 6/uL) 3.89 Hgb (11.0 - 15.0 g/dL) 12.2 Hct (33.0 - 45.0 %) 36.3 MCV (81.0 - 99.0 fL) 93.3 MCH (27.0 - 33.0 pg) 31.4 MCHC (33.0 - 37.0 g/dL) 33.6 RDW (11.5 - 14.5 %) 12.6 Plt Count (150 - 400 x10 3/uL) 233 MPV (7.0 - 9.0 fL) 9.9 H Neut % (Auto) (56.0 - 77.0 %) 72.5 Lymph % (Auto) (14.0 - 32.0 %) 20.5 Merrick % (Auto) (4.8 - 9.0 %) 5.7 Eos % (Auto) (0.3 - 3.7 %) 0.4 Baso % (Auto) (0.0 - 2.0 %) 0.3 Neut # (Auto) (2.0 - 7.6 x10 3/uL) 7.45 Lymph # (Auto) (1.0 - 3.8 x10 3/uL) 2.10 Merrick # (Auto) (0.1 - 0.8 x10 3/uL) 0.58 Eos # (Auto) (0.0 - 0.2 x10 3/uL) 0.04 Baso # (Auto) (0.0 - 0.2 x10 3/uL) 0.03 Abs Immat Gran (auto) (0.00 - 0.03 x10 3/uL) 0.06 H Add Manual Diff NO Immature Gran % (0.0 - 2.0 %) 0.6 Nucleated RBC % (0 - 0 %) 0.0 Nucleated RBCs # (Man) (0.0 - 0.1 x10 3/uL) 0.00 Serology Hep Bs Antigen (NonReactive INDEX) NON REACTIVE HIV 1 2 Antibody Screen (Nonreactive) Nonreactive SARS-CoV-2 Ag (Rapid) (Negative) Negative Diagnosis, Assessment Plan Diagnosis, Assessment PlanProblem List/A P: 1. care following vaginal delivery Assessment: nml progressPlan: routine care, discharge tomorrow, Circ as outpatient. Burning when voids likely due to periurethral superficial lacerations. Continue dermoplast spray and reassurance given. at 0613 [facility] #:[id number] OF REPORTPRProgress [id number]:10:00G.[id number] able for patient dnzqBBPWBFINTKCXBS4708-80-85W40:13:50 [facility] 2022-02-08 21:34:00 [id number] C8LULZPAFLukN4wDvpKgT9+2bK5IlGW9599-70-18C92:34:0 0 [facility] ([facility])OB Delivery NoteREPORT#:[id number] REPORT STATUS: SignedDATE:02/08/22 TIME: 2133 PATIENT: ZACK NATH UNIT #: [id number]#: [id number] [address] AGE: 26 SEX: F ATTEND: Emerson Ivory [facility] AUTHOR: Sofia Carter DO * ALL edits or amendments must be made on the electronic/computer document * OB Delivery Pre-deliveryGBS status: GBS status: negativeNewborn evaluation at delivery: NRP certified personnel, teamAdmission EGA: Weeks: 38 Days: 1Admission indication:prelabor rupture of membranes Baby A InformationBaby A information Delivery date: 02/08/22 Delivery time: 2053 status: live born Wt of baby (grams): 2800 Gender: male 1 minute: 8 5 minutes: 8 Presentation: vertexABG details Baby A Cord blood gases: collectedNuchal cord Baby A Nuchal cord: yes (loose and reduced) (x4 and true knot) Vaginal DeliveryVaginal delivery: Labor: induced Medications/Devices used: oxytocin Vaginal delivery: operative vag del vacuum Amniotic fluid: clear Anesthesia type: epidural anesthesia Laceration repair: yes, 2-0 suture Placenta: spontaneous, expressed, intact Post delivery meds used: oxytocin Count: correct Vaginal packing: No Mother's condition: mother stable Infant's condition: stable in roomLacerations: Perineal laceration(s): 1st Degree w/vaginaExtraction details OVD performed: yes OVD type:vacuum assisted Indications: indications Pt counseling: indications discussed, risks discussed, questions answered, patient consent obtained Extraction assessment: cervix completely dilated, nursery anesth notified, mat-fet size appr for dmitri, bladder empty Degree of rotation: none station: low (+2 to +4) (+4) Position of head: OA total traction time (minutes): 1 # of pulls: 1 (over 1 contraction) # of popoffs: 0 Vacuum type: [place] Vacuum detail: not > recommended range, always in recommend range, press. reduced betw UC's, adv. in station w/ea pull, appropriate cup placement, matern tiss excl from cup Extraction outcome: extraction successful head assessment: caputAdditional comments:Category 2 tracing with recurrent variable decelerations and minimal variability. Good progress with pushing. Pushed to +4 station by 15 minutes of pushing. Heart rate dropped to 60s. Vacuum delivery recommended. Reviewed risks (cephalohematoma, bleeding inside brain, severe perineal laceration), alternatives (watching decelerations, section). Pt consented to vacuum delivery. The vacuum was on for about 1 minute over about 4 contractions. No popoffs. Uterine atony after without hemorrhage. Hemabate given and pt was observed. Alsonoted to have some bleeding from the cervical edge. Pressure was held at severalplaces with ring forceps. Hemostasis noted. Blood Loss/DetailsBlood loss at delivery: <1K: no sx hypovol=no hemQBL at delivery (ml's): 457 at 2142 RPT #:[id number] OF REPORTCLClinical [id number]:34:00G.[id number] able for patient pzqbWTCJIIUGQIPWYY8469-75-99N63:42:23 [facility] 2022-02-08 15:39:00 [id number] Xapv62mld4K8Gxi2bMzeE90wectbN DyaY5xRiAdyEwO2+Cgda93ZMMk+6/nc3723-10-18A78:39:0 0 [facility] ([facility])OB Admission / H PREPORT#:[id number] REPORT STATUS: SignedDATE:02/08/22 TIME: 1538 PATIENT: ZACK NATH UNIT #: [id number]#: [id number] [address] AGE: 26 SEX: F ATTEND: Emerson Ivory MDADM AUTHOR: Emerson Ivory MD * ALL edits or amendments must be made on the electronic/computer document * OB History Nursing Documentation ReviewNursing data:The data set between the solid lines has been imported from nursing documentation. Any exceptions have been noted below under Provider comments. Current dataSteroids prior to arrival: ROM date: 02/08/22 ROM time: 529 EDC date: 02/21/22Gestational age (labor triage): Post hemorrhage risk score: Low Risk for Hemorrhage. Prior historyGravida: 1 Para: 0 Term: : Abortions spontaneous: Abortions induced: Living children: Ectopic: Stillbirths: Live births: deaths: Number of previous C/S: Reported maternal labs/dataBlood type: Rh type: Rubella: Hepatitis B: HIV exposure test: NegativeVDRL: Group B beta strep: NegativeRho(D) immune globulin this preg: Monitor mode - UA: Feeding preference: Provider comments on imported nursing data: [] Chief complaint: suspected ruptured membHPI:26 yo G1 at 38w1d by first trimester ultrasound here with SROM at 0530, clear fluid. Irregular ctx on admission. 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 Follwed by Dr. Mg with normal growth and anatomy surveys. history: : 1Current : Admission EGA (weeks) 38 Admission EGA (days) 1Conditions of : 2 vessel cordLabs: Blood type: O Rh: positive Rubella: immune Hepatitis B: negative HIV: negative STD: negative Syphilis: currently negativeProcedures: echo, ultrasound, non stress test, nuchal translucency scanGenetic testing: cfDNA low risk, SMA/FRagile X/CF negative Past HistoryAdditional Medical History:Lea Danlos type 3Additional Surgical History:hx of pneumothorax, bunion removalAlcohol Use Denies EtOH useDrug Use Denies recreational drugsSmoking status: Smoking status for patients 13 years old or older: Never SmokerMedications:Home Medications:PNV WITH FE FUMARATE/FA () 1 TAB PO DAILY FERROUS SULFATE (FEOSOL) 325 MG PO DAILY Allergies:Coded Allergies:pseudoephedrine (From Bandtastic) (Mild, HYPERSENSITIVITY 02/08/22) Review of SystemsAll systems rev neg: except as marked Objective GeneralVS:Last Documented: Result Date Time B/P Mean 77.0 02/08 1459 Pulse Ox 98 02/08 1459 B/P 101/64 02/08 1459 Pulse 53 02/08 1459 Temp 36.9 02/08 1325 Resp 16 02/08 1325 Vital Signs Date Temp Pulse Resp B/P B/P Mean Pulse Ox FiO2 / 36.9 53-96 16 101-131/64-86 77.0-104.0 97-100 PATIENT WEIGHT: Weight (lb): 158Weight (oz): 4.67Weight (kg): 71.800 Physical ExamCardiac: regular rate and rhythmLungs: unlabored breathingNeuro: Exam: alert, oriented f1Bdqiyfz: gravid, no abnormal tenderness, no guardingMusculoskeletal: painless range of motionGenitourinary: no flank painUterine activity: Monitor: toco Frequency (description): regular Frequency (minutes): 3 Resting tone: non-relaxedPelvic exam: Sterile speculum exam: poolingCervical/ exam: Est wt (gms): 3300 presentation: cephalicMembranes: Membranes: SROM Amniotic fluid: clearLower extremities: Edema: noneBaby A: Baby A baseline: 130 bpm Baby A variability: moderate 6-25 bpm Baby A accelerations: 15 X 15 Baby A decelerations: none Baby A FHR category: category 1 ResultsFindings/Data:Laboratory Tests: 02/08 02/08 1015 1010 Hematology WBC (4.5 - 11.0 x10 3/uL) 10.3 RBC (3.54 - 5.02 x10 6/uL) 3.89 Hgb (11.0 - 15.0 g/dL) 12.2 Hct (33.0 - 45.0 %) 36.3 MCV (81.0 - 99.0 fL) 93.3 MCH (27.0 - 33.0 pg) 31.4 MCHC (33.0 - 37.0 g/dL) 33.6 RDW (11.5 - 14.5 %) 12.6 Plt Count (150 - 400 x10 3/uL) 233 MPV (7.0 - 9.0 fL) 9.9 H Neut % (Auto) (56.0 - 77.0 %) 72.5 Lymph % (Auto) (14.0 - 32.0 %) 20.5 Merrick % (Auto) (4.8 - 9.0 %) 5.7 Eos % (Auto) (0.3 - 3.7 %) 0.4 Baso % (Auto) (0.0 - 2.0 %) 0.3 Neut # (Auto) (2.0 - 7.6 x10 3/uL) 7.45 Lymph # (Auto) (1.0 - 3.8 x10 3/uL) 2.10 Merrick # (Auto) (0.1 - 0.8 x10 3/uL) 0.58 Eos # (Auto) (0.0 - 0.2 x10 3/uL) 0.04 Baso # (Auto) (0.0 - 0.2 x10 3/uL) 0.03 Abs Immat Gran (auto) (0.00 - 0.03 x10 3/uL) 0.06 H Add Manual Diff NO Immature Gran % (0.0 - 2.0 %) 0.6 Nucleated RBC % (0 - 0 %) 0.0 Nucleated RBCs # (Man) (0.0 - 0.1 x10 3/uL) 0.00 Serology Hep Bs Antigen (NonReactive INDEX) NON REACTIVE HIV 1 2 Antibody Screen (Nonreactive) Nonreactive SARS-CoV-2 Ag (Rapid) (Negative) Negative Diagnosis, Assessment Plan Diagnosis, Assessment PlanFree Text A P:26 yo G1 at 38w1d by first trimester ultrasound with PROM, Cat I tracing- cont pitocin augmentation per protocol- labor epidural prn-- Anticipate SVDAssessment/Impression: PROM 37-38 weeks, 6 daysPlan: augmentation of labor, delivery (induction of labor) at 1243 RPT #:[id number] OF REPORTHPHistory and physical gpkzuugipbf9732-64-26L38:39:00G.[id number] AVAvailable for patient tvbtXXIPITXQOJDRQE2864-57-26Q03:43:29 [facility]L 2022-02-08 12:50:00 [id number] 1yNdf7Ylmz2ct8To867HCDOzQyKqr WkW3/+kUuTYpwMXYG1iAa/QU8TF98mx3334-62-95P60:50:0 0 [facility] ([facility] Medical Screening ExamREPORT#:[id number] REPORT STATUS: SignedDATE:02/08/22 TIME: 1250 PATIENT: ZACK NATH UNIT #: [id number]#: [id number] [address] AGE: 26 SEX: F ATTEND: Emerson Ivory MDA AUTHOR: Opal Kiran MD * ALL edits or amendments must be made on the electronic/computer document * Medical Screening Exam Provider AttestationAttestation:The QMP MSE reviewed. [place]ified at 0851Provider at bedside at 0857Comments:26 y/o female at 38 weeks who presented with gross rupture of membranes. at 1253 RPT #:[id number] OF REPORTCLClinical htaj9367-66-60V83:50:00G.[id number] able for patient qnvtWIGIOEJJLACXNO1412-41-68B47:53:51 [facility]ACL 2022-02-08 08:55:00 [id number] ivfvlPI0E/e5ONqfWuHmUWaVMeUSU oBI9uwK9jj1uhTiiCuUkvFUP/aTVQ7d1928-54-63N44:55:0 0 [facility] ([facility])MAYA Evaluation NoteREPORT#:[id number] REPORT STATUS: SignedDATE:02/08/22 TIME: 854 PATIENT: ZACK NATH UNIT #: [id number]#: [id number] [address] AGE: 26 SEX: F ATTEND: Emerson Ivory [facility] AUTHOR: Opal Kiran MD * ALL edits or amendments must be made on the electronic/computer document * MAYA HistoryChief complaint: suspected ruptured membHPI:26 y/o female at 38 weeks who presents with a complaint of rupture of membranes since 5:30 am. Patient describes a large gush of fluid, clear. Patient denies any vaginal bleeding or contractions.She reports good movement. PNC with Dr. Ivory which has been complicated by maternal Lea-Danlos Syndrome, Type II and single umbilical artery. Patient has been followed by [facility]. Mg during the . There has been no evidence of IUGR or other abnormalities with the fetus. history: : 1 Term: 0Current : EDC: 02/21/22 EGA (weeks/days): 38 weeksConditions of : Lea-Danlos Type II, single umbilical uterine arteryPast medical history: Lea-Danlos Type IIPast surgical history: Bilateral Toe Surgery (fractures); Diagnostic LaparoscopySocial history: , no alcohol use, no tobacco use, no drug useMedications:Home Medications: Medication Dose/Rte/Freq Days Qty Entered Last Max Daily Dose Reviewed PNV WITH FE 1 TAB PO DAILY 02/08/22 02/08/22 FUMARATE/FA 0867 0848 () Strength: 1 EACH TAB FERROUS SULFATE 325 MG PO DAILY 02/08/22 02/08/22 (FEOSOL) 0848 0848 Strength: 325 MG TAB AllergiesCoded Allergies:pseudoephedrine (From SUDAFED) (Mild, HYPERSENSITIVITY 02/08/22) Objective GeneralVS:PATIENT WEIGHT: Weight (lb): Weight (oz): Weight (kg): Physical ExamHEENT: normocephalic w/o injuryLungs: unlabored breathingBreasts: deferredNeuro: Exam: alert, oriented x3, normal speechAbdomen: gravid, soft, no abnormal tendernessMusculoskeletal: painless range of motionGenitourinary: no flank painUterine activity: Monitor: toco Frequency (description): irregular Frequency (minutes): 10 (Irregular (8-10 minutes)) Duration (seconds): 40 Intensity: mild Tachysystole: NoPelvic exam: Pelvis clinically adequate: yes Vulvar lesions: none Vagina: normal Sterile speculum exam: poolingCervical/ exam: Dilatation (cm): 1 Effacement (%): 60 station: - 2 presentation: cephalic FHR evaluation: Baseline: 140 bpm Variability: moderate 6-25 bpm Accelerations: 15 X 15 Decelerations: none FHR category: category 1Membranes: Membranes: IntactLower extremities: Edema: none Diagnosis, Assessment Plan Diagnosis, Assessment PlanFree Text A P:26 y/o female at 38 weeks who presents with PROM since 5:30 am. There is gross pooling of fluid. There is no evidence of active labor. GBBS negative. tracing is category 1. Patient has Lea-Danlos Type II and a trial of vaginal delivery has been planned.Plan: admit to inpatient, transfer to [facility] discussed with: patient, spouse/partnerTime spent: Time spent on patient care (minutes): 30 >50% spent on counseling/coordination of care: yesComments:Case reviewed with Dr. Ivory and the plan is to admit the patient for management of labor/delivery. at 1108 RPT #:[id number] OF REPORTCLClinical vldz8358-16-15N03:55:00G.[id number] able for patient kumqAKRNFIZSOHLYLR3271-58-00B90:08:42 HCACL
[2023-11-16 11:12] LABS: Hematocrit 35.7 % (36.0-45.0); Lymphocytes % 20.4 % (15.3-44.8); MCV 83.4 fL (80-100); MPV 7.6 fL (7.6-11.3); Platelets 266 thou/uL (152-406); RBC Red Blood Cell Count 4.28 M/uL (3.86-4.86)
[2023-11-16 11:13] LABS: Specific Gravity 1.017 (1.005-1.030)
[2023-11-16 11:32] LABS: Specific Gravity 1.016 (1.005-1.030); Urine Bacteria <20 /HPF (<20); Urine Bilirubin NEGATIVE (Negative); Urine Blood 1+ (Negative); Urine Clarity Extremely Turbid (Clear); Urine Color Light-Yellow (Yellow); Urine Glucose NEGATIVE (Negative); Urine Mucus Slight /HPF (None Seen); Urine Protein TRACE (Negative); Urine Urobilinogen Normal (Normal); Urine pH 5.5 (5.0-7.0)
[2023-11-16 11:33] LABS: Albumin 3.2 g/dL (3.4-5.0); Bilirubin Total 0.3 mg/dL (0.2-1.0); Potassium 3.8 mEq/L (3.5-5.1)
--- NOTE | 2023-11-16 12:30 | RAD REPORT ---
EXAM DESCRIPTION: CT - Abdomen Pelvis W Contrast - 11/16/2023 11:50 am CLINICAL HISTORY: Abdominal pain/left flank pain COMPARISON: 2019 TECHNIQUE: Computed axial tomography of the abdomen pelvis was obtained. 100 cc Isovue-300 was admin istered intravenously. Oral contrast was not requested which limits evaluation of bowel and appendix All CT scans are performed using dose optimization technique as appropriate and may include automated exposure control or mA/KV adjustment according to patient size. FINDINGS: Periportal hepatic edema Spleen, pancreas, adrenal and right kidney appear unremarkable. Several small low-density areas left kidney reaching the periphery probably mild pyelonephritis There is no evidence of diverticulitis. No adnexal mass Moderate amount of stool within the colon IMPRESSION: Mild left pyelonephritis Moderate amount stool within the colon Periportal hepatic edema is a nonspecific finding but can be associated with inflammation
--- NOTE | 2023-11-16 13:15 | ER ---
Nurse's Notes [facility] Name: Zack Mansfield Age: 28 yrs Sex: Female : 1995 Arrival Date: 11/16/2023 Time: 10:07 Bed 7 Private MD: Cony Isaacs Diagnosis: Pyelonephritis acute Presentation: 11/16 10:33 Chief complaint: Patient states: Left lower back pain, has had dysuria for about 1.5 nj1 weeks ago, was taking azo's, symptoms improved somehow. Had leftover abx that started taking last night. Taking ibuprofen with some relief. Last dose at 2:30am. Coronavirus screen: Vaccine status: Patient reports being unvaccinated. Ebola Screen: Patient denies travel to an Ebola-affected area in the 21 days before illness onset. Initial Sepsis Screen: Does the patient meet any 2 criteria? HR > 90 bpm. No. Patient's initial sepsis screen is negative. Does the patient have a suspected source of infection? No. Patient's initial sepsis screen is negative. Risk Assessment: Do you want to hurt yourself or someone else? Patient reports no desire to harm self or others. Onset of symptoms was October 2023. 10:33 Method Of Arrival: Ambulatory [facility] 10:33 Acuity: JIE 3 nj1 Historical: - Allergies: 10:36 No Known Allergies; nj1 - PMHx: 10:36 pnuemothorax; Right lung (2012); yasmani-danlos syndrome; nj1 - PSHx: 10:36 Bunionectomy; nj1 - Immunization history:: Client reports having NOT received the Covid vaccine. - Social history:: Smoking status: Patient denies any tobacco usage or history of. Screenin:34 [facility] ED Fall Risk Assessment (Adult) History of falling in the last 3 months, ph including since admission No falls in past 3 months (0 pts) Score/Fall Risk Level 0 - 2 = Low Risk Oriented to surroundings, Maintained a safe environment, Provided non-skid footwear, Hourly rounding (assess needs \T\ fall precautionary measures) done. Abuse screen: Denies threats or abuse. Denies injuries from another. Nutritional screening: No deficits noted. Tuberculosis screening: No symptoms or risk factors identified. Assessment: 11:00 General: Appears in no apparent distress. uncomfortable, slender, well groomed, ph Behavior is calm, cooperative, appropriate for age. Pain: Complains of pain in left low back Pain radiates to left lower quadrant. Neuro: Level of Consciousness is awake, alert, obeys commands, Oriented to person, place, time, situation. Cardiovascular: Capillary refill < 3 seconds in bilateral fingers Patient's skin is warm and dry. Respiratory: Airway is patent Respiratory effort is even, unlabored. GI: Reports lower abdominal pain, nausea, Patient currently denies diarrhea, vomiting. : Reports pain in left lower quadrant(s) in lower back. Derm: Skin is pink, warm \T\ dry. Vital Signs: 10:33 BP 115 / 74; Pulse 99; Resp 18; Temp 98.8; Pulse Ox 100% ; Weight 58.97 kg; Height 5 nj1 ft. 9 in. ; Pain 7/10; 11:36 BP 105 / 72; Pulse 97; Resp 18; Pulse Ox 99% on R/A; ph 13:00 BP 110 / 78; Pulse 87; Resp 18; Pulse Ox 99% on R/A; ph 10:33 Body Mass Index 19.20 (58.97 kg, 175.26 cm) nj1 10:33 Pain Scale: Adult [facility] ED Course: 10:09 Patient arrived in ED. mr 10:09 Isa Madden FNP [facility]. jh7 10:09 Yariel Bustillos MD is Attending Physician. jh7 10:09 Cony Isaacs is Private Physician. mr 10:36 Triage completed. nj1 10:38 Arm band placed on left wrist. nj1 10:43 Carmenza Johnson, RN is Primary Nurse. ph 11:00 Initial lab(s) drawn, by sd, sent to lab. Urine collected: clean catch specimen, aram ph colored. Inserted saline lock: 22 gauge in right antecubital area, using aseptic technique. Blood collected. 11:35 Patient has correct armband on for positive identification. Bed in low position. Call ph light in reach. Side rails up X2. 11:52 CT Abd/Pelvis - IV Contrast Only In Process Unspecified. EDMS 14:16 No provider procedures requiring assistance completed. IV discontinued, intact, ph bleeding controlled, No redness/swelling at site. Pressure dressing applied. Administered Medications: 11:05 Drug: NS 0.9% IV 1000 ml IV at 1 bolus Per protocol; 1000 mL bolus Route: IV; Rate: 1 ph bolus; Site: right antecubital; 13:24 Follow up: Response: No adverse reaction; IV Status: Completed infusion; IV Intake: ph 1000ml 11:05 Drug: Ondansetron IVP 4 mg IVP once; over 2 minutes Route: IVP; Site: right antecubital;ph 13:24 Follow up: Response: No adverse reaction ph 11:05 Drug: morphine IVP or IV 4 mg IVP once over 4 mins Route: IVP; Infused Over: 4 mins; ph Site: right antecubital; 13:24 Follow up: Response: No adverse reaction; Pain is decreased; RASS: Alert and Calm (0) ph 12:06 Drug: Ketorolac IVP 30 mg IVP once Route: IVP; Site: right antecubital; ph 13:24 Follow up: Response: No adverse reaction; Pain is decreased ph 13:24 Drug: Rocephin IV 1 grams IV at 1 calculated rate once; Given slow IV push per pharmacy ph instructions Route: IV; Rate: 1 calculated rate; Site: right antecubital; 14:13 Drug: morphine IVP or IV 2 mg IVP once over 4 mins Route: IVP; Infused Over: 4 mins; hb Site: right antecubital; Medication: 11:35 VIS not applicable for this client. ph Intake: 13:24 IV: 1000ml; Total: 1000ml. ph Outcome: 13:14 Discharge ordered by MD. murray 14:16 Patient left the ED. hb 14:16 Discharged to home ambulatory, with significant other, ph 14:16 Condition: good 14:16 Discharge instructions given to patient, Instructed on discharge instructions, follow up and referral plans. medication usage, Demonstrated understanding of instructions, follow-up care, medications, Prescriptions given X 2, Signatures: Dispatcher [employer] EDAR Izzy Dominguez, Gene Mills mr Carmenza Johnson, MCKENNA RN Sabrina Peters RN RN Isa Madden, GAS UTILITY WORKER GAS UTILITY WORKER Leslie Wan RN RN nj1 Corrections: (The following items were deleted from the chart) 10:38 10:36 PSHx: Exploratory laparotomy; nj1 nj1 11:35 11:35 Ondansetron IVP 4 mg IVP in right antecubital ph ph
--- NOTE | 2023-11-16 13:15 | EDPHYS ---
Physician Documentation [facility] Name: Zack Mansfield Age: 28 yrs Sex: Female : 1995 Arrival Date: 11/16/2023 Time: 10:07 Bed 7 Private MD: Cony Isaacs ED Physician Yariel Bustillos HPI: 11/16 10:30 This 28 yrs old Female presents to ER via Ambulatory with complaints of Back Pain. jh7 10:30 The patient presents with pain that is acute, with no known mechanism of injury. The jh7 symptoms are located in the left low back. Onset: The symptoms/episode began/occurred yesterday. The pain radiates to the abdomen. Associated signs and symptoms: Pertinent positives: abdominal pain, dysuria, fever, nausea, Pertinent negatives: chest pain, vomiting, weakness. The problem was sustained Diagnosed with a UTI 1.5 weeks ago and was on antibiotics. Now experiencing sharp left flank pain, cloudy urine, chills/subjective fever.. Historical: - Allergies: 10:36 No Known Allergies; nj1 - PMHx: 10:36 pnuemothorax; Right lung (2012); yasmani-danlos syndrome; nj1 - PSHx: 10:36 Bunionectomy; nj1 - Immunization history:: Client reports having NOT received the Covid vaccine. - Social history:: Smoking status: Patient denies any tobacco usage or history of. ROS: 10:30 ENT: Negative for injury, pain, and discharge, Neck: Negative for injury, pain, and jh7 swelling, Cardiovascular: Negative for chest pain, palpitations, and edema, Respiratory: Negative for shortness of breath, cough, wheezing, and pleuritic chest pain, MS/Extremity: Negative for injury and deformity, Skin: Negative for injury, rash, and discoloration, Neuro: Negative for headache, weakness, numbness, tingling, and seizure, 10:30 Constitutional: Positive for chills, fever, malaise, 10:30 Abdomen/GI: 10:30 Abdomen/GI: Positive for abdominal pain, nausea, Negative for vomiting, diarrhea, constipation, 10:30 : Positive for urinary symptoms, flank pain, 10:30 All other systems are negative, Exam: 10:30 Head/Face: Normocephalic, atraumatic. Eyes: Pupils equal round and reactive to light, [facility] extra-ocular motions intact. Lids and lashes normal. Conjunctiva and sclera are non-icteric and not injected. Cornea within normal limits. Periorbital areas with no swelling, redness, or edema. Neck: Trachea midline, no thyromegaly or masses palpated, and no cervical lymphadenopathy. Supple, full range of motion without nuchal rigidity, or vertebral point tenderness. No Meningismus. Cardiovascular: Regular rate and rhythm with a normal S1 and S2. No gallops, murmurs, or rubs. Normal PMI, no JVD. No pulse deficits. Respiratory: Lungs have equal breath sounds bilaterally, clear to auscultation and percussion. No rales, rhonchi or wheezes noted. No increased work of breathing, no retractions or nasal flaring. Skin: Warm, dry with normal turgor. Normal color with no rashes, no lesions, and no evidence of cellulitis. MS/ Extremity: Pulses equal, no cyanosis. Neurovascular intact. Full, normal range of motion. Neuro: Awake and alert, GCS 15, oriented to person, place, time, and situation. Motor strength 5/5 in all extremities. Sensory grossly intact. Normal gait. 10:30 Constitutional: The patient appears alert, awake, in obvious pain, 10:30 Abdomen/GI: Inspection: abdomen appears normal, Bowel sounds: normal, Palpation: soft, mild abdominal tenderness, in the left lower quadrant, 10:30 : CVA tenderness, on the left, Vital Signs: 10:33 BP 115 / 74; Pulse 99; Resp 18; Temp 98.8; Pulse Ox 100% ; Weight 58.97 kg; Height 5 wi1 ft. 9 in. ; Pain 7/10; 11:36 BP 105 / 72; Pulse 97; Resp 18; Pulse Ox 99% on R/A; ph 13:00 BP 110 / 78; Pulse 87; Resp 18; Pulse Ox 99% on R/A; ph 10:33 Body Mass Index 19.20 (58.97 kg, 175.26 cm) [facility] 10:33 Pain Scale: Adult [facility] MDM: 10:09 Patient medically screened. [facility] 13:30 Differential diagnosis: Cholelithiasis Hydronephrosis Pyelonephritis Ureterolithiasis 7 UTI. Data reviewed: vital signs, nurses notes, lab test result(s), radiologic studies, CT scan. I considered the following discharge prescriptions or medication management in the emergency department Medications were administered in the Emergency Department. See MAR. Historians other than the Patient: Spouse/Significant Other: . Counseling: I had a detailed discussion with the patient and/or guardian regarding the historical points, exam findings, and any diagnostic results supporting the discharge/admit diagnosis, to return to the emergency department if symptoms worsen or persist or if there are any questions or concerns that arise at home. Response to treatment: the patient's symptoms have markedly improved after treatment. Special discussion: I discussed with the patient the need to follow-up with the PCP/specialist for the noted incidental finding on X-ray/CT scanning. 11/16 10:31 Order name: CBC with Diff; Complete Time: 11:32 [facility] 11/16 10:31 Order name: CMP; Complete Time: 11:38 [facility] 11/16 10:31 Order name: Lipase; Complete Time: 11:38 [facility] 11/16 10:31 Order name: Test, Urine; Complete Time: 11:32 [facility] 11/16 10:31 Order name: Urinalysis w/ reflexes; Complete Time: 11:38 [facility] 11/16 11:40 Order name: Urine Culture [facility] 11/16 10:31 Order name: CT Abd/Pelvis - IV Contrast Only; Complete Time: 12:35 [facility] 11/16 10:31 Order name: IV Saline Lock; Complete Time: 11:35 [facility] 11/16 10:31 Order name: Labs collected and sent; Complete Time: 11:35 [facility] 11/16 12:38 Order name: PO challenge; Complete Time: 12:39 [facility] Administered Medications: 11:05 Drug: NS 0.9% IV 1000 ml IV at 1 bolus Per protocol; 1000 mL bolus Route: IV; Rate: 1 ph bolus; Site: right antecubital; 13:24 Follow up: Response: No adverse reaction; IV Status: Completed infusion; IV Intake: ph 1000ml 11:05 Drug: Ondansetron IVP 4 mg IVP once; over 2 minutes Route: IVP; Site: right antecubital;ph 13:24 Follow up: Response: No adverse reaction ph 11:05 Drug: morphine IVP or IV 4 mg IVP once over 4 mins Route: IVP; Infused Over: 4 mins; ph Site: right antecubital; 13:24 Follow up: Response: No adverse reaction; Pain is decreased; RASS: Alert and Calm (0) ph 12:06 Drug: Ketorolac IVP 30 mg IVP once Route: IVP; Site: right antecubital; ph 13:24 Follow up: Response: No adverse reaction; Pain is decreased ph 13:24 Drug: Rocephin IV 1 grams IV at 1 calculated rate once; Given slow IV push per pharmacy ph instructions Route: IV; Rate: 1 calculated rate; Site: right antecubital; 14:13 Drug: morphine IVP or IV 2 mg IVP once over 4 mins Route: IVP; Infused Over: 4 mins; hb Site: right antecubital; Disposition Summary: 11/16/23 13:14 Discharge Ordered Notes: Location: Home [facility] Problem: new [facility] Symptoms: have improved [facility] Condition: Stable [facility] Diagnosis - Pyelonephritis acute [facility] Followup: [facility] - With: Private Physician - When: 2 - 3 days - Reason: Recheck today's complaints Discharge Instructions: - Discharge Summary Sheet [facility] - Pyelonephritis, Adult [facility] Forms: - Work release form - Medication Reconciliation Form [facility] - Thank You Letter [facility] - Antibiotic Education [facility] - Prescription Opioid Use [facility] - Patient Portal Instructions [facility] - Leadership Thank You Letter [facility] Prescriptions: - acetaminophen-codeine 300-15 mg Oral tablet - take 1 tablet ORAL route every 4-6 hours As needed as needed for pain; 20 jh7 tablet; Refills: 0, Product Selection Permitted - Cipro 500 mg Oral Tablet - take 1 tablet ORAL route every 12 hours for 10 days; 20 tablet; Refills: 0, 7 Product Selection Permitted Signatures: Dispatcher [employer] Carmenza [place] RN RN Sabrina Peters RN RN Isa Madden FNP [place] [address] Leslie Romero RN RN nj1 Corrections: (The following items were deleted from the chart) 10:38 10:36 PSHx: Exploratory laparotomy; nj1 nj1
[2023-11-16 14:38] VITALS: BP 105/72; TEMP 98.8; O2SAT 99
== END ==
LOC: ER 10:07
DX: N10 Acute pyelonephritis (principal); Z28.310 Unvaccinated for COVID-19
CPT/HCPCS: 87088; 85025; 81001; 87086; 36415; 81025; 83690; 80053; 74177; Q9967; J2270; J2405; J7030; J0696; 96361; 96374; 96375; 99284

== ENCOUNTER 2023-11-17 13:48 | Inpatient (IN) | payer OTHER ==
--- OUTSIDE RECORDS SUMMARY | 2023-11-17 13:52 | XMS REPORT | Continuity of Care Document ---
Author Name Unknown Address [address] [place] [address] [facility] thconnect Address [address] [place] [address] Care Team Providers Care Grinder Operator Automatic Name Role Phone Emerson Ivory Attending Clinician Unavailab Lonny Teran Attending Clinician Unavailable Emerson Ivory Admitting Clinician Unavailab le Payers Payer Name Policy Type Policy Number Effective Date Expirati on Date Source [employer] C1 [id number] 2020 00:00:00 [facility] Problems Condition Name Condition Details Condition Category Status Onset Date Resolution Date Last Treatment Date Treating Clinician Comments Source [id number] Abdominal fluid collection Problem Active [facility] Allergies, Adverse Reactions, Alerts Allergy Name Allergy Type Status Severity Reaction(s) Onset Date Inactive Date Treating Clinician Comments Source SUDAFED DA Active [place] HYPERSENSITI VITY 02-08 00:00: 00 [facility] pseudoep hedrine DA Active [place] HYPERSENSITI VITY 02-08 00:00: 00 [facility] Social History Social Habit Start Date Stop Date Quantity Comments Source History of Tobacco Use Never Smoker [facility] Sex Assigned At [facility] Smoking Status Start Date Stop Date Source Never Smoker [facility] Medications Ordered Medication Name Filled Medication Name [...] height 2020-06-22 15:30:00 69 [in_i] [facility] weight 2020-06-22 15:30:00 133.8 [lb_av] Co [facility] temperature 2020-06-22 15:30:00 98.2 [degF] Com [facility] bmi 2020-06-22 15:30:00 19.76 kg/m2 Comm [facility] oximetry 2020-06-22 15:30:00 99 % [facility] respiratory rate 2020-06-22 15:30:00 16 /min [facility] blood pressure systolic 2020-06-22 15:30:00 122 mm[Hg] [facility] blood pressure diastolic 2020-06-22 15:30:00 67 mm[Hg] [facility] Procedures Procedure Date / Time Performed Performing Clinicia n Source [id number] 2022-02-08 00:00:00 KEESHACA [facility] [id number] 2022-02-08 00:00:00 KEESHACA [facility] [id number] 2022-02-08 00:00:00 KEESHACA [facility] [id number] 2022-02-08 00:00:00 KEESHACA [facility] [id number] 2022-02-08 [id number] 2022-02-08 00:00:00 ADA [facility] Encounters Start Date/Time End Date/Time Encounter Type Admission Type Attending Clinicians Care Facility Care Department Encounter ID Source 2022-02-21 11:47:00 Inpatient Emerson Morales [facility] LD [id number] [facility] 2021-10-17 11:51:12 Out[facility] [id number] [facility] 2022-02-08 09:35:00 2022-02-10 11:44:00 Inpatient Emerson Morales [facility] OBPP [id number] [facility] 2020-06-22 00:00:00 2020-06-22 00:00:00 OFFICE VISIT NEW PT LEVEL 3 [facility] [id number] [facility] Results Test Description Test Time Test Comments Results Result Co mments Source AG HEPATITIS B [id number] 11:39:00* Test Item Value Reference Range Interpretation Comme nts AG HEPATITIS B SURFACE (test code = HBSAG) NON REACTIVE INDEX NonReactive AB HIV 1 11:39:00* Test Item Value Reference Range Interpretation Comme nts AB HIV 1 2 (test code = TTA26WH) Nonreactive Nonreactive RAPID PLASMA [id number] 11:39:00* Test Item Value Reference Range Interpretation Comme nts RAPID PLASMA REAGIN (test co de = RPR) NONREACTIVE NONREACTIVE CBC W/AUTO [id number] 07:49:00* Test Item Value Reference Range Interpretation [...] code = MDIFF) NO CORD ARTERIAL BLOOD [id number] 21:15:00* Test Item Value Reference Range Interpretation [...] = TEMPC) 98 F CORD VENOUS BLOOD [id number] 21:14:00* Test Item Value Reference Range Interpretation [...] TEMPC) 98 F COVID 19 Asymptomatic IH [id number] 11:01:00* Test Item Value Reference Range Interpretation [...] moderate, high or waivedcomplexity tests. CBC W/AUTO [id number] 10:47:00* Test Item Value Reference Range Interpretation [...] Notes Date/Time Note Provider Source 2022-02-10 09:40:00 [id number] Hmb1Bj5fRcZ+IkpLeJOu83HMzFonuwy4617-11-15Z52:40:0 0 [facility] ([facility])OB Disch PostpartumREPORT#:[id number] REPORT STATUS: SignedDATE:02/10/22 TIME: 939 PATIENT: ZACK NATH UNIT #: [id number]#: [id number] [address] [birth year] AGE: 26 SEX: F ATTEND: Emerson Ivory [facility] AUTHOR: Sofia Carter DO * ALL [...] 0000 Temp 98.6 02/10 0000 Pulse 84 / 0000 Resp 17 02/10 0000 B/P Mean 93.0 02/09 0013 PATIENT WEIGHT: Weight (lb): 158Weight (oz): 4.67Weight (kg): 71.800 Physical ExamCardiac: normal rhythmLungs: clear to auscultationNeuro: Exam: alert, oriented y1Nxdayey: post gravid, soft, no abnormal tendernessUterus: involution [...] (14.0 - 32.0 %) 10.5 L 20.5 Hunt % (Auto) (4.8 - 9.0 %) 6.6 5.7 Eos % (Auto) (0.3 - 3.7 %) 0.2 L 0.4 Baso % (Auto) (0.0 - 2.0 %) 0.3 0.3 Neut # (Auto) (2.0 - 7.6 x10 3/uL) 11.35 H 7.45 Lymph # (Auto) (1.0 - 3.8 x10 3/uL) 1.45 2.10 Hunt # (Auto) (0.1 - 0.8 x10 3/uL) [...] noted below under Provider comments. Delivery date A: 02/08/22 Delivery time A: 2054Birthweight (gm) infant A: 2800Feeding preference: Gender infant A: MaleApgar 1 minute A: 8Apgar 5 minutes A: 8Apgar 10 minutes infant A: Provider comments on imported nursing data: [] Plan: routine care, discharge todayVaginal packing at delivery: No Discharge InstructionsInstructions: routine instr sheet given, instr and warnings rev'dDiet: RegularActivity: No Wilber for 6 Wks, No Swimming, Nothing in [...] timeframe: In 5-6 weeks at 0944 RPT #:[id number] OF REPORTCLClinical vidn6410-47-13L24:40:00G.[id number] able for patient imfeHWHFWTETDKNNMJ3091-31-46W82:44:50 [facility] 2022-02-09 06:10:00 [id number] 8vJqyh64rn+CUbbky1lMH3CHw7KFg xpM+LNRoABC+91uHjPclfkR5b/tlKfa0429-13-61C03:10:0 0 [facility] ([facility])OB Postpart Progr NoteREPORT#:[id number] REPORT STATUS: SignedDATE:02/09/22 TIME: 0610 PATIENT: ZACK NATH UNIT #: [id number]#: [id number] [address] [birth year] AGE: 26 SEX: F ATTEND: Emerson Ivory MDADM AUTHOR: Sofia Carter DO * ALL edits [...] O2 Flow FiO2 Mean Ox Delivery Rate 05 0415 98.6 79 17 105/63 99 05/21 [...] 78 98 05/20 2119 85 99 05/20 2114 92 99 05/20 2113 86.0 05/20 2113 76 16 114/68 96 05/20 2108 83 99 05/20 2103 81 99 05/20 [...] 93 93 05/20 2004 84 100 05/20 1959 84 100 05/20 6 76 92 05/20 4 72 100 05/20 1949 71 99 05/20 [...] 1340 63 115/72 05/20 1339 66 97 05/20 1337 85.0 05/20 1337 63 117/67 05/20 1334 84.0 02/08 1334 68 113/68 98 02/08 1331 86.0 02/08 1331 69 111/71 02/08 1329 74 98 02/08 1328 90.0 02/08 1328 80 120/73 02/08 1325 87.0 02/08 1325 98.5 71 16 117/69 97 02/08 1324 71 97 02/08 1322 94.0 02/08 1322 77 124/77 02/08 1319 93.0 02/08 1319 81 124/75 99 02/08 1315 104.0 02/08 1315 83 131/86 02/08 1314 96 98 02/08 0941 92.0 02/08 0941 77 115/77 02/08 0913 80.0 02/08 0913 98.5 74 16 106/65 100 PATIENT [...] % (Auto) (14.0 - 32.0 %) 20.5 Hunt % (Auto) (4.8 - 9.0 %) 5.7 Eos % (Auto) (0.3 - 3.7 %) 0.4 Baso % (Auto) (0.0 - 2.0 %) 0.3 Neut # (Auto) (2.0 - 7.6 x10 3/uL) 7.45 Lymph # (Auto) (1.0 - 3.8 x10 3/uL) 2.10 Hunt # (Auto) (0.1 - 0.8 x10 3/uL) [...] dermoplast spray and reassurance given. at 0613 RPT #:[id number] OF REPORTPRProgress nfqd9875-63-15O90:10:00G.VIPK76900359-3987VQAekpx able for patient ddjqFJJQPZDWGDWBYP5835-92-47Q55:13:50 [facility] 2022-02-08 21:34:00 [id number] 64jfrhT0qq23LwYegTiO7MBS4jtU4 L2WAAHSFBQvpZ2rGnwQcM6+6pJ0OuNU5120-97-81P62:34:0 0 [facility] ([facility])OB Delivery NoteREPORT#:[id number] REPORT STATUS: SignedDATE:02/08/22 TIME: 2133 PATIENT: ZACK NATH UNIT #: [id number]#: [id number] [address] [birth year] AGE: 26 SEX: F ATTEND: Emerson Ivory MDADM AUTHOR: Sofia Carter DO * ALL edits [...] Vaginal packing: No Mother's condition: mother stable 's condition: infant stable in roomLacerations: Perineal laceration(s): 1st Degree [...] at delivery (ml's): 457 at 2142 RPT #:[id number] OF REPORTCLClinical anql7627-22-05G17:34:00G.LXNW11633203-8754DHWyjbb able for patient xnfwMCCQSVHFAHXWFK8773-36-71E58:42:23 [facility] 2022-02-08 15:39:00 [id number] Htmt47jne5H3Zgw6kEqhU03smrtlB BckN9jZnDmkDfS6+Nova21KZAb+6/mb1372-53-68E47:39:0 0 [facility] ([facility])OB Admission / H PREPORT#:[id number] REPORT STATUS: SignedDATE:02/08/22 TIME: 1538 PATIENT: ZACK NATH UNIT #: [id number]#: [id number] [address] [birth year] AGE: 26 SEX: F ATTEND: Emerson Ivory AUTHOR: Emerson Ivory MD * ALL edits [...] 325 MG PO DAILY Allergies:Coded Allergies:pseudoephedrine (From SUDAFED) (Mild, HYPERSENSITIVITY 02/08/22) Review of SystemsAll systems rev neg: except as marked Objective GeneralVS:Last Documented: Result Date Time B/P Mean 77.0 02/08 1459 Pulse Ox 98 02/08 1459 B/P 101/64 02/08 1459 Pulse 53 02/08 1459 Temp 36.9 02/08 1325 Resp 16 02/08 1325 Vital Signs Date Temp Pulse Resp B/P B/P Mean Pulse Ox FiO2 02/08 36.9 53-96 16 101-131/64-86 77.0-104.0 97-100 PATIENT WEIGHT: Weight (lb): 158Weight (oz): 4.67Weight (kg): 71.800 Physical ExamCardiac: regular rate and rhythmLungs: unlabored breathingNeuro: Exam: alert, oriented f0Ryrnjis: gravid, no abnormal tenderness, no guardingMusculoskeletal: painless [...] % (Auto) (14.0 - 32.0 %) 20.5 Hunt % (Auto) (4.8 - 9.0 %) 5.7 Eos % (Auto) (0.3 - 3.7 %) 0.4 Baso % (Auto) (0.0 - 2.0 %) 0.3 Neut # (Auto) (2.0 - 7.6 x10 3/uL) 7.45 Lymph # (Auto) (1.0 - 3.8 x10 3/uL) 2.10 Hunt # (Auto) (0.1 - 0.8 x10 3/uL) [...] delivery (induction of labor) at 1243 RPT #:[id number] OF REPORTHPHistory and physical uqnddxgwxcl2165-27-93J00:39:00G.[id number] AVAvailable for patient qkdiTCIJLTLCVGUGIS0224-13-48M75:43:29 [facility] 2022-02-08 12:50:00 [id number] 3fEdr9Hpcl6kv4Ve516UGVDcAkZac WkW3/+nMzPJnxLHST1vKt/GX9ZO81od4772-30-60B27:50:0 0 [facility] ([facility])OB Medical Screening ExamREPORT#:[id number] REPORT STATUS: SignedDATE:02/08/22 TIME: 1250 PATIENT: ZACK NATH UNIT #: [id number]#: [id number] [address] AGE: 26 SEX: F ATTEND: Emerson Ivory [facility] AUTHOR: Opal Kiran MD * ALL edits or amendments must be made on the electronic/computer document * Medical Screening Exam Provider AttestationAttestation:The QMP MSE reviewed. [place]ified at 0851Provider at bedside at 0857Comments:26 y/o female at 38 weeks who presented with gross rupture of membranes. at 1253 RPT #:[id number] OF REPORTCLClinical hhij5248-11-82W67:50:00G.OABV39471506-4381QKTqzex able for patient cbyzTOSFWDHNAVJYYZ8246-94-67L65:53:51 [facility] 2022-02-08 08:55:00 [id number] glmmeQN8K/i6VQklKkLxWXrXRdYTJ xZI5sxD5rb8eiTclBjUzuHRO/vRCF6b8457-01-86H77:55:0 0 [facility] ([facility])MAYA Evaluation NoteREPORT#:[id number] REPORT STATUS: SignedDATE:02/08/22 TIME: 08 PATIENT: ZACK NATH UNIT #: [id number]#: [id number] [facility]DOB: [birth year] AGE: 26 SEX: F ATTEND: Emerson Ivory [facility] AUTHOR: Opal Kiran MD * ALL [...] umbilical artery. Patient has been followed by MFM, Dr. Mg during the . There has been [...] 1 TAB PO DAILY 02/08/22 02/08/22 FUMARATE/FA 3882 7414 () Strength: 1 EACH TAB FERROUS SULFATE [...] been planned.Plan: admit to inpatient, transfer to [facility] discussed with: patient, spouse/partnerTime spent: Time spent on patient care (minutes): 30 >50% spent on counseling/coordination of care: yesComments:Case reviewed with Dr. Ivory and the plan is to admit the patient for management of labor/delivery. at 1108 RPT #:[id number] OF REPORTCLClinical tcnr8706-51-78E39:55:00G.ZNWE24755227-0339EKTjqvq able for patient kfzcIQWQRJOJRPOZLX9253-05-30D12:08:42 [facility]
--- NOTE | 2023-11-17 15:16 | RAD REPORT ---
EXAM DESCRIPTION: Christy Single View11/17/2023 2:24 pm CLINICAL HISTORY: fever COMPARISON: none FINDINGS: The lungs appear clear of acute infiltrate. The heart is normal size IMPRESSION: No acute abnormalities displayed
[2023-11-17 15:18] LABS: Absolute Lymphocytes (CBC) 1.6 K/uL (0.7-4.9); Hematocrit 34.2 % (36.0-45.0); Lymphocytes % 21.9 % (15.3-44.8); MCV 83.4 fL (80-100); MPV 7.5 fL (7.6-11.3); Platelets 264 thou/uL (152-406)
[2023-11-17] MEDS ORDERED: ACETAMINOPHEN 325 MG TABLET ONE (15:26)
[2023-11-17] MEDS ORDERED: CEFTRIAXONE 1000 MG/VIAL ONE ×2 (15:26→16:10)
[2023-11-17] MEDS ORDERED: NA CHLORIDE 0.9% 2,000 ML ONE (15:27)
[2023-11-17 15:37] LABS: Albumin 3.2 g/dL (3.4-5.0); Bilirubin Total 0.3 mg/dL (0.2-1.0); Potassium 3.6 mEq/L (3.5-5.1); Protein, Total 8.4 g/dL (6.4-8.2)
[2023-11-17] MEDS ORDERED: Levofloxacin500mg IV 500 MG/100 ML BAG IV ONE (16:10)
[2023-11-17] MEDS ORDERED: HYDROMORPHONE HCL 0.5 MG/0.5 ML INJ ONE ×2 (16:10→16:45)
[2023-11-17] MEDS ORDERED: ONDANSETRON 4 MG/2 ML VIAL ONE (16:10)
--- NOTE | 2023-11-17 16:16 | ER ---
Nurse's Notes [facility] Name: Zack Mansfield Age: 28 yrs Sex: Female : 1995 Arrival Date: 11/17/2023 Time: 13:48 Bed 19 Private MD: Diagnosis: Pyelonephritis acute-FAILED OUTPATIENT TREATMENT;Nausea;Fever, unspecified Presentation: 11/17 14:37 Chief complaint: Patient states: she was evaluated here yesterday and dx with a kidney ap3 infection. patient reports her pain is getting worse. patient currently rates her pain as a 8/10 on the pain scale. pain is located on her left flank. Coronavirus screen: At this time, the client does not indicate any symptoms associated with coronavirus-19. Ebola Screen: No symptoms or risks identified at this time. Initial Sepsis Screen: Does the patient meet any 2 criteria? No. Patient's initial sepsis screen is negative. Risk Assessment: Do you want to hurt yourself or someone else? Patient reports no desire to harm self or others. Onset of symptoms was November 14, 2023. 14:37 Method Of Arrival: Ambulatory ap3 14:37 Acuity: JIE 3 ap3 18:31 Initial Sepsis Screen: Does the patient have a suspected source of infection? No. me1 Patient's initial sepsis screen is negative. Triage Assessment: 14:40 General: Appears uncomfortable, Behavior is cooperative, appropriate for age. Pain: ap3 Complains of pain in left low back Pain currently is 8 out of 10 on a pain scale. Pain began gradually. Neuro: Level of Consciousness is awake, alert, obeys commands, Oriented to person, place, time, situation. Cardiovascular: Patient's skin is warm and dry. Respiratory: Airway is patent Respiratory effort is even, unlabored, Respiratory pattern is regular, symmetrical. GI: Reports nausea. : Reports pain in left flank(s). 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 Flu vaccine is not up to date. - Social history:: Smoking status: Patient denies any tobacco usage or history of. Screenin:41 [facility] ED Fall Risk Assessment (Adult) History of falling in the last 3 months, ap3 including since admission No falls in past 3 months (0 pts). Abuse screen: Denies threats or abuse. Nutritional screening: No deficits noted. Tuberculosis screening: No symptoms or risk factors identified. Assessment: 14:21 Reassessment: Pt's family reports pt is currently at radiology. . aa5 14:30 General: Appears uncomfortable, ill, well groomed, well developed, well nourished, me1 Behavior is calm, cooperative, appropriate for age, Reports she was evaluated here yesterday and dx with a kidney infection. patient reports her pain is getting worse. patient currently rates her pain as a 8/10 on the pain scale. pain is located on her left flank. Pain: Complains of pain in left mid back and back and left low back Pain does not radiate. Pain currently is 8 out of 10 on a pain scale. Quality of pain is described as sharp, shooting, Pain began gradually, Is continuous. 14:30 Neuro: Level of Consciousness is awake, alert, obeys commands, Oriented to person, me1 place, time, situation, Appropriate for age. Cardiovascular: Capillary refill < 3 seconds Patient's skin is warm and dry. Respiratory: Airway is patent Trachea midline Respiratory effort is even, unlabored, Respiratory pattern is regular, symmetrical. GI: No signs and/or symptoms were reported involving the gastrointestinal system. GI: Abdomen is non-distended. : Reports burning with urination, urinary frequency. Vital Signs: 14:37 BP 112 / 65; Pulse 89; Resp 18; Temp 98.2; Pulse Ox 100% ; Weight 58.97 kg; Height 5 ap3 ft. 9 in. ; Pain 8/10; 15:30 BP 107 / 64; Pulse 68; Resp 18; Pulse Ox 100% on R/A; me1 16:30 BP 104 / 67; Pulse 70; Resp 16; Pulse Ox 100% on R/A; me1 17:30 BP 108 / 68; Pulse 76; Pulse Ox 100% on R/A; ap3 17:30 BP 104 / 84; Pulse 86; Resp 16; Pulse Ox 100% on R/A; me1 18:30 BP 100 / 64; Pulse 76; Resp 16; Pulse Ox 100% on R/A; me1 14:37 Body Mass Index 19.20 (58.97 kg, 175.26 cm) ap3 14:37 Pain Scale: Adult ap3 ED Course: 13:51 Patient arrived in ED. im 13:58 Yariel Bustillos MD is Attending Physician. maritza 14:26 Chest Single View XRAY In Process Unspecified. EDMS 14:39 Triage completed. ap3 14:41 Arm band placed on right wrist. ap3 15:10 Patient has correct armband on for positive identification. Bed in low position. Call ap3 light in reach. Side rails up X 1. Adult w/ patient. 15:10 Initial lab(s) drawn, by me, sent to lab. First set of blood cultures drawn by me. ap3 Inserted saline lock: 20 gauge in right antecubital area, using aseptic technique. Blood collected. 15:24 Ayesha Alston, MCKENNA is Primary Nurse. me1 15:41 Blood Culture Adult (2) Sent. me1 16:15 [place] is Hospitalizing Provider. [facility] 18:30 No provider procedures requiring assistance completed. Patient admitted, IV remains in me1 place. 18:31 Provided Education on: POC. Verbalized understanding. . me1 19:04 Urinalysis w/ reflexes Sent. me1 19:04 PREGU Sent. me1 19:04 Urine Culture Sent. me1 Administered Medications: 15:30 Not Given (Patient Refused; took tylenol #3 at 13:30 15:42 Drug: Rocephin IV 1 grams IV at per protocol once; Given slow IV push per pharmacy me1 instructions Route: IV; Rate: per protocol; Site: right antecubital; 15:43 Follow up: Response: No adverse reaction; IV Status: Completed infusion me1 15:42 Drug: NS 0.9% IV 1000 ml IV at 1 bolus Per protocol; 1000 mL bolus Route: IV; Rate: 1 me1 bolus; Site: right antecubital; 17:16 Follow up: IV Status: Completed infusion; IV Intake: 1000ml 3 15:42 Drug: NS 0.9% IV 1000 ml IV at 1 bolus Per protocol; 1000 mL bolus Route: IV; Rate: 1 me1 bolus; Site: right antecubital; 17:16 Follow up: IV Status: Completed infusion; IV Intake: 1000ml ap3 16:16 Drug: Rocephin IV 1 grams IV at per protocol once; Given slow IV push per pharmacy me1 instructions Route: IV; Rate: per protocol; Site: right antecubital; 16:16 Follow up: Response: No adverse reaction; IV Status: Completed infusion me1 16:16 Drug: HYDROmorphone IVP 0.5 mg IVP once Route: IVP; Site: right antecubital; me1 16:46 Follow up: Response: No adverse reaction; Pain is unchanged, physician notified me1 16:16 Drug: Ondansetron IVP 4 mg IVP once; over 2 minutes Route: IVP; Site: right antecubital;me1 16:43 Follow up: Response: No adverse reaction; Nausea is decreased me1 16:17 Drug: levofloxacin IVPB 500 mg 100 ml IVPB once over 60 mins Volume: 100 ml; Route: me1 IVPB; Infused Over: 60 mins; Site: right antecubital; 17:15 Follow up: IV Status: Completed infusion; IV Intake: 100ml ap3 16:45 Drug: HYDROmorphone IVP 0.5 mg IVP once Route: IVP; Site: right antecubital; me1 17:39 Follow up: Response: No adverse reaction; Pain is decreased me1 17:40 Drug: Promethazine IVP 12.5 mg IVP once Route: IVP; Site: right antecubital; me1 17:45 Follow up: Response: No adverse reaction; Nausea is decreased me1 Medication: 14:41 VIS not applicable for this client. ap3 Intake: 17:15 IV: 100ml; Total: 100ml. ap3 17:16 IV: 1000ml; Total: 1100ml. ap3 17:16 IV: 1000ml; Total: 2100ml. ap3 Outcome: 16:16 Decision to Hospitalize by Provider. maritza 18:30 Admitted to Med/surg accompanied by tech, via wheelchair, room 216, with chart, Report me1 called to MCKENNA Kevin 18:30 Condition: stable 18:30 Instructed on the need for admit, 19:51 Patient left the ED. me1 Signatures: Dispatcher [facility] Yariel Garcia MD MD cha Calderon, Audri RN RN aa5 Jacqueline Perry RN RN ap3 Sonali Flynn Michelle, RN RN me1 Corrections: (The following items were deleted from the chart) 18:52 14:37 Chief complaint: Patient states: she was evaluated here yesterday and dx with a me1 kidney infection. patient reports her pain is getting worse. patient currently rates her pain as a 8/10 on the pain scale. pain is located on her left flank ap3
--- NOTE | 2023-11-17 16:16 | EDPHYS ---
Physician Documentation [facility] Name: Zack Mansfield Age: 28 yrs Sex: Female : 1995 Arrival Date: 11/17/2023 Time: 13:48 Bed 19 Private MD: ED Physician Yariel Bustillos HPI: 11/17 16:04 This 28 yrs old Female presents to ER via Ambulatory with complaints of Low maritza Back Pain, Nausea, Fever. 16:04 The patient presents with pain that is acute, with no known mechanism of injury. The maritza symptoms are located in the left low back and left mid back. The pain radiates to the . The problem was sustained without known cause. Onset: The symptoms/episode began/occurred 3 day(s) ago. Modifying factors: The patient symptoms are alleviated by. Severity of symptoms: At their worst the symptoms were moderate, in the emergency department the symptoms are actually worse, mildly. 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 Flu vaccine is not up to date. - Social history:: Smoking status: Patient denies any tobacco usage or history of. ROS: 16:11 Constitutional: Negative for fever, chills, and weight loss, Eyes: Negative for injury, maritza pain, redness, and discharge, ENT: Negative for injury, pain, and discharge, Neck: Negative for injury, pain, and swelling, Cardiovascular: Negative for chest pain, palpitations, and edema, Respiratory: Negative for shortness of breath, cough, wheezing, and pleuritic chest pain, Abdomen/GI: Negative for abdominal pain, nausea, vomiting, diarrhea, and constipation, : Negative for injury, bleeding, discharge, and swelling, MS/Extremity: Negative for injury and deformity, Skin: Negative for injury, rash, and discoloration, Neuro: Negative for headache, weakness, numbness, tingling, and seizure, Psych: Negative for depression, anxiety, suicide ideation, homicidal ideation, and hallucinations, Allergy/Immunology: Negative for hives, rash, and allergies, Endocrine: Negative for neck swelling, polydipsia, polyuria, polyphagia, and marked weight changes, 16:11 Back: Positive for pain at rest, pain with movement, flank pain, on the left, Exam: 16:11 Constitutional: This is a well developed, well nourished patient who is awake, alert, maritza and in no acute distress. Head/Face: Normocephalic, atraumatic. Eyes: Pupils equal round and reactive to light, extra-ocular motions intact. Lids and lashes normal. Conjunctiva and sclera are non-icteric and not injected. Cornea within normal limits. Periorbital areas with no swelling, redness, or edema. ENT: Nares patent. No nasal discharge, no septal abnormalities noted. Tympanic membranes are normal and external auditory canals are clear. Oropharynx with no redness, swelling, or masses, exudates, or evidence of obstruction, uvula midline. Mucous membranes moist. Neck: Trachea midline, no thyromegaly or masses palpated, and no cervical lymphadenopathy. Supple, full range of motion without nuchal rigidity, or vertebral point tenderness. No Meningismus. Chest/axilla: Normal chest wall appearance and motion. Nontender with no deformity. No lesions are appreciated. Cardiovascular: Regular rate and rhythm with a normal S1 and S2. No gallops, murmurs, or rubs. Normal PMI, no JVD. No pulse deficits. Respiratory: Lungs have equal breath sounds bilaterally, clear to auscultation and percussion. No rales, rhonchi or wheezes noted. No increased work of breathing, no retractions or nasal flaring. Abdomen/GI: Soft, non-tender, with normal bowel sounds. No distension or tympany. No guarding or rebound. No evidence of tenderness throughout. Pelvic Exam: Normal external genitalia. Speculum exam with closed cervical os, no discharge or bleeding noted. Bimanual exam with normal adnexa, no adnexal or cervical motion tenderness. Normal uterus. Female : Normal external genitalia. Skin: Warm, dry with normal turgor. Normal color with no rashes, no lesions, and no evidence of cellulitis. MS/ Extremity: Pulses equal, no cyanosis. Neurovascular intact. Full, normal range of motion. Neuro: Awake and alert, GCS 15, oriented to person, place, time, and situation. Cranial nerves II-XII grossly intact. Motor strength 5/5 in all extremities. Sensory grossly intact. Cerebellar exam normal. Normal gait. Psych: Awake, alert, with orientation to person, place and time. Behavior, mood, and affect are within normal limits. 16:11 Back: pain, that is mild, that is moderate, ROM is normal, normal spinal alignment noted, CVA tenderness, that is moderate, is noted on the left, muscle spasm, is not present, Vital Signs: 14:37 BP 112 / 65; Pulse 89; Resp 18; Temp 98.2; Pulse Ox 100% ; Weight 58.97 kg; Height 5 ap3 ft. 9 in. ; Pain 8/10; 15:30 BP 107 / 64; Pulse 68; Resp 18; Pulse Ox 100% on R/A; me1 16:30 BP 104 / 67; Pulse 70; Resp 16; Pulse Ox 100% on R/A; me1 17:30 BP 108 / 68; Pulse 76; Pulse Ox 100% on R/A; ap3 17:30 BP 104 / 84; Pulse 86; Resp 16; Pulse Ox 100% on R/A; me1 18:30 BP 100 / 64; Pulse 76; Resp 16; Pulse Ox 100% on R/A; me1 14:37 Body Mass Index 19.20 (58.97 kg, 175.26 cm) ap3 14:37 Pain Scale: Adult ap3 MDM: 13:58 Patient medically screened. [facility] 11/17 14:03 Order name: CBC with Diff; Complete Time: 16:00 [facility] 11/17 14:03 Order name: Comprehensive Metabolic Panel; Complete Time: 16:00 [facility] 11/17 14:03 Order name: Urinalysis w/ reflexes 11/17 14:03 Order name: PREGU 11/17 14:03 Order name: Blood Culture Adult (2) 11/17 14:03 Order name: Lactate w/ 2H reflex if indic.; Complete Time: 16:00 [facility] 11/17 14:03 Order name: Urine Culture [facility] 11/17 17:14 Order name: Basic Metabolic Panel [facility] 11/17 17:14 Order name: Basic Metabolic Panel [facility] 11/17 17:14 Order name: CBC with Automated Diff EDMS 11/17 17:14 Order name: CBC with Automated Diff EDMS 11/17 17:14 Order name: Magnesium EDMS 11/17 17:14 Order name: Magnesium EDMS 11/17 17:14 Order name: Phosphorus EDMS 11/17 17:14 Order name: Phosphorus EDMS 11/17 14:03 Order name: Chest Single View XRAY; Complete Time: 16:00 maritza Administered Medications: 15:30 Not Given (Patient Refused; took tylenol #3 at 13:30 15:42 Drug: Rocephin IV 1 grams IV at per protocol once; Given slow IV push per pharmacy me1 instructions Route: IV; Rate: per protocol; Site: right antecubital; 15:43 Follow up: Response: No adverse reaction; IV Status: Completed infusion me1 15:42 Drug: NS 0.9% IV 1000 ml IV at 1 bolus Per protocol; 1000 mL bolus Route: IV; Rate: 1 me1 bolus; Site: right antecubital; 17:16 Follow up: IV Status: Completed infusion; IV Intake: 1000ml ap3 15:42 Drug: NS 0.9% IV 1000 ml IV at 1 bolus Per protocol; 1000 mL bolus Route: IV; Rate: 1 me1 bolus; Site: right antecubital; 17:16 Follow up: IV Status: Completed infusion; IV Intake: 1000ml ap3 16:16 Drug: Rocephin IV 1 grams IV at per protocol once; Given slow IV push per pharmacy me1 instructions Route: IV; Rate: per protocol; Site: right antecubital; 16:16 Follow up: Response: No adverse reaction; IV Status: Completed infusion me1 16:16 Drug: HYDROmorphone IVP 0.5 mg IVP once Route: IVP; Site: right antecubital; me1 16:46 Follow up: Response: No adverse reaction; Pain is unchanged, physician notified me1 16:16 Drug: Ondansetron IVP 4 mg IVP once; over 2 minutes Route: IVP; Site: right antecubital;me1 16:43 Follow up: Response: No adverse reaction; Nausea is decreased me1 16:17 Drug: levofloxacin IVPB 500 mg 100 ml IVPB once over 60 mins Volume: 100 ml; Route: me1 IVPB; Infused Over: 60 mins; Site: right antecubital; 17:15 Follow up: IV Status: Completed infusion; IV Intake: 100ml ap3 16:45 Drug: HYDROmorphone IVP 0.5 mg IVP once Route: IVP; Site: right antecubital; me1 17:39 Follow up: Response: No adverse reaction; Pain is decreased me1 17:40 Drug: Promethazine IVP 12.5 mg IVP once Route: IVP; Site: right antecubital; me1 17:45 Follow up: Response: No adverse reaction; Nausea is decreased me1 Disposition Summary: 11/17/23 16:16 Hospitalization Ordered Notes: Hospitalization Status: Inpatient Admission maritza Provider: [place] cha Location: Telemetry/MedSurg (Inpatient) maritza Condition: Fair maritza Problem: new maritza Symptoms: have improved amritza Bed/Room Type: Standard maritza Room Assignment: 216(11/17/23 17:18) bd Diagnosis - Pyelonephritis acute - FAILED OUTPATIENT TREATMENT maritza - Nausea maritza - Fever, unspecified maritza Forms: - Medication Reconciliation Form maritza - SBAR form maritza - Leadership Thank You Letter maritza Signatures: Dispatcher [employer] EDMS Zulay Lott Corey, MD MD cha Prokisch, Amanda RN RN ap3 Ayesha Alston RN RN me1 Corrections: (The following items were deleted from the chart) 14:47 14:04 Abdomen Pelvis W Con+CT.RAD.BRZ ordered. EDMS EDMS 17:18 16:16 maritza bd
--- NOTE | 2023-11-17 17:01 | P.HP ---
Certification for Inpatient Patient admitted to: Observation With expected LOS: >2 Midnights Practitioner: I am a practitioner with admitting privileges, knowledge of patient current condition, hospital course, and medical plan of care. Services: Services provided to patient in accordance with Admission requirements found in Title 42 Section 412.3 of the Code of Federal Regulations Patient History Date of Service: 11/17/23 Reason for admission: Left pyelonephritis, failed outpatient History of Present Illness: Zack Mansfield is a 28-year-old female with past medical history lea-danlos syndrome; pnuemothorax to the right lung (2012), and anxiety who presents to the ED with complaints of left lower back pain, nausea, and fever, onset 3 days ago. She reports coming to the ED yesterday (11/16) and was given Ciprofloxacin outpatient without relief, first dose taken this morning. She reports not having frequent UTIs. On examination, she was exhibiting anxiety like behavior, complaining of abdominal tightness that was occuring new. 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 She was continually nauseous and having dry heaves, afebrile, and VSS. While in the Ed, she was given Rocephin 2 grams, 2 Liters NS, zofran. Initial Vital signs BP 112 / 65; Pulse 89; Resp 18; Temp 98.2; Pulse Ox 100% ; Weight 58.97 kg. Laboratory evaluation are unremarkable. Zack will be admitted to hospitalist service for further evaluation and treatment of left pyelonephritis. - Past Medical/Surgical History -: Lea-Danlos -: anxiety -: spontaneous pneumothorax 2012 -: bunion - Family History Family History: Reviewed- Non-Contributory - Social History Smoking Status: Never smoker Alcohol use: Yes CD- Drugs: No Review of Systems General: Chills Respiratory: Shortness of Breath Gastrointestinal: Nausea, Vomiting, Other (dry heaves) Neurological: Weakness Physical Examination - Physical Exam General: Alert, Oriented x3, Mild distress HEENT: Atraumatic, Normocephalic, PERRLA Neck: Supple, 2+ carotid pulse no bruit, JVD not distended Respiratory: Clear to auscultation bilaterally, Normal air movement Cardiovascular: No edema, Normal pulses, Regular rate/rhythm, Normal S1 S2 Capillary refill: <2 Seconds Gastrointestinal: Normal bowel sounds, Soft and benign Musculoskeletal: No clubbing, No swelling, No contractures Integumentary: No rashes, No breakdown, No significant lesion, No tenderness/swelling Neurological: Normal speech, Normal strength at 5/5 x4 extr, Normal tone - Studies Laboratory Data (last 24 hrs) 11/17/23 11/17/23 15:05 15:05 WBC 7.40 Hgb 11.2 L Hct 34.2 L Plt Count 264 Sodium 138 Potassium 3.6 BUN 7 Creatinine 0.84 Glucose 100 Total Bilirubin 0.3 AST 20 ALT 24 Alkaline Phosphatase 78 Assessment and Plan - Plan Assessment and plan Acute left pyelonephritis intractable nausea/vomiting fluid volume deficit Postive Left costovertebral vertebral angle pain Rocephin and levaquin with 2 liters NS given in the ED Rocephin BID Antiemetics, antipyretic Gentle IVF Follow blood cultures and urine culture UA pending test pending Anxiety continue home medications Lea-Danlos supportive care history of spontaneous right pneumothorax (2012) DVT ppx lovenox full code LOS 2-3 days Discharge Plan: Home Plan to discharge in: 48 Hours - Advance Directives Does patient have a Living Will: No Does patient have a Durable POA for Healthcare: No Time Spent Managing Pts Care (In Minutes): 50
[2023-11-17] MEDS ORDERED: PROMETHAZINE INJ 25 MG/ML AMP ONE (17:38)
[2023-11-17] MEDS: ENOXAPARIN 40 MG/0.4 ML SQ SCH (18:00)
[2023-11-17 19:19] LABS: Specific Gravity 1.022 (1.005-1.030)
[2023-11-17 19:24] LABS: Specific Gravity 1.022 (1.005-1.030); Urine Bacteria <20 /HPF (<20); Urine Bilirubin NEGATIVE (Negative); Urine Blood 1+ (Negative); Urine Clarity Extremely Turbid (Clear); Urine Color Yellow (Yellow); Urine Glucose NEGATIVE (Negative); Urine Mucus 4+ /HPF (None Seen); Urine Protein 1+ (Negative); Urine Urobilinogen Normal (Normal); Urine pH 5.5 (5.0-7.0)
[2023-11-17] MEDS: NA CHLORIDE 0.9% 1,000 ML IV SCH (21:17)
[2023-11-17] MEDS: MORPHINE 2 MG/ML SYR IV PRN (21:19)
[2023-11-17] MEDS: ONDANSETRON 4 MG/2 ML VIAL IV PRN (21:27)
[2023-11-17 22:42] VITALS: BMI 19.2
[2023-11-18 04:29] LABS: Absolute Lymphocytes (CBC) 1.6 K/uL (0.7-4.9); Hematocrit 26.7 % (36.0-45.0); Lymphocytes % 29.1 % (15.3-44.8); MCV 83.6 fL (80-100); MPV 7.9 fL (7.6-11.3); Platelets 195 thou/uL (152-406)
[2023-11-18 04:40] LABS: Magnesium 2.1 mg/dL (1.6-2.4); Phosphorus 2.5 mg/dL (2.5-4.9); Potassium 4.2 mEq/L (3.5-5.1)
[2023-11-18 07:32] LABS: Ferritin 15.2 ng/mL (8-388)
[2023-11-18] MEDS: POTASS/SODIUM PHOSPHATE 1 PKT POWD.PACK PO SCH (09:56)
[2023-11-18] MEDS: CEFTRIAXONE 1,000 MG in NA CHLORIDE 0.9% 50 ML IVPB SCH (09:56)
--- NOTE | 2023-11-18 13:44 | P.PN ---
Date of Service: 11/18/23 Subjective: Still with left-sided abdominal pain/left flank pain Had some nausea/vomiting yesterday Improving today ROS: 10 point ROS as noted above, otherwise negative Physical exam GEN: Alert, oriented, NAD HEENT: Normal conjunctiva, sclera anicteric CV: Regular rate and rhythm, no edema Pulm: Nonlabored respirations on room air ABD: Soft, nontender, mild left lower quadrant tenderness MSK: No joint tenderness, positive left CVA tenderness Integumentary: No rashes Neuro: Normal speech, normal affect Vitals reviewed Assessment and plan Acute left pyelonephritis intractable nausea/vomiting fluid volume deficit Continue IV Rocephin Urine culture from previous ED visit with no growth CT from previous ED visit with left-sided pyelonephritis Denies frequent UTIs last urine culture 2019 with pansensitive E. coli If still clinically improving likely discharge tomorrow morning Iron deficiency anemia Begin iron supplementation Anxiety continue home medications Lea-Danlos supportive care history of spontaneous right pneumothorax (2012) DVT ppx lovenox full code Discharge Plan: Home Plan to discharge in: 24 hours Time Spent Managing Pts Care (In Minutes): 35
[2023-11-18] MEDS ORDERED: Levofloxacin500mg IV 500 MG/100 ML BAG IV SCH (16:00)
[2023-11-18] MEDS: SERTRALINE HCL 50 MG TAB PO SCH (20:05)
[2023-11-18] MEDS: HYDROCODONE/APAP 7.5/325 MG TAB PO PRN (21:46)
[2023-11-19 04:12] LABS: Hematocrit 25.4 % (36.0-45.0); MCV 83.2 fL (80-100); MPV 8.1 fL (7.6-11.3); Platelets 210 thou/uL (152-406); RBC Red Blood Cell Count 3.05 M/uL (3.86-4.86)
[2023-11-19 04:39] LABS: Potassium 3.8 mEq/L (3.5-5.1)
[2023-11-19 07:54] LABS: ALT/SGPT 36 U/L (13-56); AST/SGOT 34 U/L (15-37); Albumin 2.3 g/dL (3.4-5.0); Alkaline Phosphatase 82 U/L (45-117); Bilirubin Total 0.2 mg/dL (0.2-1.0); Protein, Total 6.1 g/dL (6.4-8.2)
[2023-11-19 08:03] LABS: Bilirubin Direct < 0.1 mg/dL (0-0.2); Bilirubin Indirect, Calculated ND mg/dL (0.2-0.8)
[2023-11-19] MEDS: POTASSIUM CL SA 10 MEQ TAB PO ONE (08:50)
[2023-11-19] MEDS ORDERED: MORPHINE 2 MG/ML SYR IV PRN (08:53)
[2023-11-19] MEDS ORDERED: SODIUM CHLORIDE 0.9% 10ML INJ IV PRN (08:54)
[2023-11-19] MEDS: POLYETHYL GLY 3350 17 GM/DOSE PO ONE (09:17)
[2023-11-19] MEDS: PANTOPRAZOLE 40 MG INJ IVP SCH (09:18)
[2023-11-19 09:19] VITALS: O2SAT 97
--- NOTE | 2023-11-19 10:52 | RAD REPORT ---
EXAM DESCRIPTION: CTAbdomen Pelvis W/Wo Contrast - 11/19/2023 10:11 am CLINICAL HISTORY: L flank pain R/O Stone/abscess/ileus/sbo COMPARISON: Abdomen Pelvis W Contrast dated 11/16/2023; Abdomen Pelvis W Contrast dated 06/19/2020 ; Abdomen Pelvis W Contrast dated 06/18/2020 TECHNIQUE: CT of the abdomen and pelvis was performed with and without contrast. All CT scans are performed using dose optimization technique as appropriate and may include automated exposure control or mA/KV adjustment according to patient size. FINDINGS: Lower chest: Small bilateral pleural effusions. Mild circumferential thickened distal esop hagus. Liver: Periportal edema. No suspicious masses. Biliary: No biliary ductal dilatation. Stomach: No significant focal abnormality. Duodenum: No significant focal abnormality. Pancreas: No significant abnormality. Spleen: No significant abnormality. Adrenal: No suspicious lesions. Kidney/ureter: No hydronephrosis. No renal calculi. Too small to characterize and/or benign appearing renal lesions are noted. Some hypoenhancement noted in the upper pole the left kidney which was note d on the prior CT in could reflect changes of pyelonephritis but is nonspecific. Retroperitoneum: No retroperitoneal adenopathy. Vascular: No aneurysm. Bowel: No significant focal abnormality. Peritoneum: Moderate pelvic free fluid. Bladder: Grossly unremarkable. Reproductive: No adnexal masses. Bones: No acute fracture. Other: n/a IMPRESSION: New small bilateral pleural effusions, increasing periportal edema, and increasing pelvi c free fluid could be secondary to volume overload. No other specific etiology of the fluid is identi fied.
--- NOTE | 2023-11-19 13:33 | P.PN ---
Date of Service: 11/19/23 Subjective: Had worsening left-sided pain more localized to the left lower quadrant/anterior left flank Still with back pain No fevers overnight No further nausea/vomiting ROS: 10 point ROS as noted above, otherwise negative Physical exam GEN: Alert, oriented, NAD HEENT: Normal conjunctiva, sclera anicteric CV: Regular rate and rhythm, no edema Pulm: Nonlabored respirations on room air ABD: Soft, nontender, mild left lower quadrant tenderness MSK: No joint tenderness, positive left CVA tenderness Integumentary: No rashes Neuro: Normal speech, normal affect Vitals reviewed Assessment and plan Acute left pyelonephritis intractable nausea/vomiting fluid volume deficit Continue IV Rocephin Urine culture from previous ED visit with no growth CT from previous ED visit with left-sided pyelonephritis Denies frequent UTIs last urine culture 2019 with pansensitive E. coli Repeat CT 11/19 showed new small bilateral pleural effusions, increasing periportal edema, and increasing pelvic free fluid could be secondary to volume overload. No specific etiology of fluid is identified. Also significant stool burden is noted additional discussion with attending physician/radiology regarding possibility of nutcracker syndrome, will try bowel regimen if there is no improvement obtain left renal Doppler ultrasound Iron deficiency anemia Will begin iron supplementation once patient is no longer in the acute phase of her possible infection/pyelonephritis Patient does report history of iron deficiency anemia in the past Anxiety continue home medications Lea-Danlos supportive care history of spontaneous right pneumothorax (2012) DVT ppx lovenox full code Discharge Plan: Home Plan to discharge in: 24 to 48 hours Time Spent Managing Pts Care (In Minutes): 35
[2023-11-19] MEDS: POLYETHYL GLY 3350 17 GM/DOSE PO PRN (14:38)
[2023-11-19] MEDS: BISACODYL 10 MG RECTAL SUPP PR PRN (16:16)
[2023-11-20 04:05] LABS: Hematocrit 26.2 % (36.0-45.0); MCV 82.8 fL (80-100); MPV 8.5 fL (7.6-11.3); Platelets 229 thou/uL (152-406); RBC Red Blood Cell Count 3.17 M/uL (3.86-4.86)
[2023-11-20 04:16] LABS: Albumin 2.5 g/dL (3.4-5.0); Bilirubin Total 0.2 mg/dL (0.2-1.0); Potassium 4.1 mEq/L (3.5-5.1); Protein, Total 6.5 g/dL (6.4-8.2)
[2023-11-20 08:39] VITALS: BP 121/65; TEMP 98
--- NOTE | 2023-11-20 12:35 | P.DS ---
Admission Date: 11/17/23 Discharge Date: 11/20/23 Disposition: ROUTINE DISCHARGE Discharge Condition: GOOD Reason for Admission: Left pyelonephritis, failed outpatient Brief History of Present Illness: Zack Mansfield is a 28-year-old female with past medical history lea-danlos syndrome; pnuemothorax to the right lung (2012), and anxiety who presents to the ED with complaints of left lower back pain, nausea, and fever, onset 3 days ago. She reports coming to the ED yesterday (11/16) and was given Ciprofloxacin outpatient without relief, first dose taken this morning. She reports not having frequent UTIs. On examination, she was exhibiting anxiety like behavior, complaining of abdominal tightness that was occuring new. 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 She was continually nauseous and having dry heaves, afebrile, and VSS. Hospital Course: Problem list Acute left pyelonephritis intractable nausea/vomiting fluid volume deficit Anxiety Ehler Danlos syndrome Patient was admitted for left-sided pyelonephritis. She initially came to the emergency department on 11/16/2023 with complaints of back pain and was found to have mild pyelonephritis on CT scan, she had taken 1 dose of cephalexin about 12 hours prior to presentation to the emergency department. She had a urine culture obtained at that time which showed no growth, she returned back to the emergency department on 11/17/2023 with worsening pain and was admitted for left- sided pyelonephritis. Urine and blood cultures were obtained which were both without growth, her white blood cell count remained normal during hospitalization. She had some low-grade temps around 99 degrees. She had some worsening left anterior flank pain overnight on 11/18, for that reason a repeat CT scan was performed on 11/19 which showed new small bilateral pleural effusions, increasing periportal edema, increasing pelvic free fluid could be secondary to volume overload. No other specific etiology of the fluid identified. Is also noted the patient had large stool burden, had not had a bowel movement in few days. She was given MiraLAX and a suppository and was able to have a bowel movement, after having a bowel movement she had significant relief of her symptoms. Given her history of Lea-Danlos syndrome the possibility of nutcracker syndrome was discussed with radiology, it was noted that the left renal vein does have some mild mass effect by the SMA and aorta although the left gonadal vein is not dilated. There were some prominent venous collaterals in the retroperitoneum. Given the resolution of her significant left side abdominal pain after having a bowel movement it is likely that her pain was caused by significant stool burden/constipation. She has been tolerating her diet, pain is significant improved and she is stable for discharge at this time. Of note patient was also found to be iron deficient and anemic iron level 25 TIBC 281 transferrin 201 transferrin saturation percentage 8.9 ferritin 15.2 and hemoglobin remained around 8.5. Discussed this with patient and family recommend reinitiation of supplemental iron at home. At discharge the patient will be prescribed the following new medications: Cefpodoxime 100 mg by mouth twice daily for 11 additional days for total of 2 weeks of antibiotics Tylenol 3 as needed for pain Please resume iron supplementation-patient reports she has iron at home to take Please follow-up with your primary care doctor in [address] scan report 11/19 pasted below FINDINGS: Lower chest: Small bilateral pleural effusions. Mild circumferential thickened distal esophagus. Liver: Periportal edema. No suspicious masses. Biliary: No biliary ductal dilatation. Stomach: No significant focal abnormality. Duodenum: No significant focal abnormality. Pancreas: No significant abnormality. Spleen: No significant abnormality. Adrenal: No suspicious lesions. Kidney/ureter: No hydronephrosis. No renal calculi. Too small to characterize and/or benign appearing renal lesions are noted. Some hypoenhancement noted in the upper pole the left kidney which was noted on the prior CT in could reflect changes of pyelonephritis but is nonspecific. Retroperitoneum: No retroperitoneal adenopathy. Vascular: No aneurysm. Bowel: No significant focal abnormality. Peritoneum: Moderate pelvic free fluid. Bladder: Grossly unremarkable. Reproductive: No adnexal masses. Bones: No acute fracture. Other: n/a IMPRESSION: New small bilateral pleural effusions, increasing periportal edema, and increasing pelvic free fluid could be secondary to volume overload. No other specific etiology of the fluid is identified. ADDENDUM: Discussed with Dr. Colvin regarding a possibility of nutcracker syndrome. The left renal vein does have some mild mass effect by the SMA and aorta. The left gonadal vein is not dilated, however there are some prominent venous collaterals in the retroperitoneum. Doppler ultrasound may be able to better evaluate. Vital Signs/Physical Exam: Temp Pulse Resp BP Pulse Ox 98 F 71 13 121/65 97 11/20/23 08:00 11/20/23 08:00 11/20/23 08:00 11/20/23 08:00 11/20/23 08:00 General: Alert, In no apparent distress, Oriented x3 HEENT: Atraumatic, PERRLA Neck: Supple, JVD not distended Respiratory: Clear to auscultation bilaterally, Normal air movement Cardiovascular: Regular rate/rhythm, Normal S1 S2 Gastrointestinal: Normal bowel sounds, Tenderness (mild left upper/lower/left cva tenderness) Musculoskeletal: No tenderness Integumentary: No rashes Neurological: Normal speech, Normal tone Laboratory Data at Discharge: WBC 4.30 thou/uL (4.3-10.9) 11/20/23 03:09 Hgb 8.8 g/dL (12.0-15.0) L 11/20/23 03:09 Hct 26.2 % (36.0-45.0) L 11/20/23 03:09 Plt Count 229 thou/uL (152-406) 11/20/23 03:09 Sodium 140 mEq/L (136-145) 11/20/23 03:09 Potassium 4.1 mEq/L (3.5-5.1) 11/20/23 03:09 BUN 6 mg/dL (7-18) L 11/20/23 03:09 Creatinine 0.70 mg/dL (0.55-1.02) 11/20/23 03:09 Glucose 109 mg/dL (74-106) H 11/20/23 03:09 Phosphorus 3.0 mg/dL (2.5-4.9) 11/19/23 03:30 Magnesium 2.1 mg/dL (1.6-2.4) 11/18/23 04:01 Total Bilirubin 0.2 mg/dL (0.2-1.0) 11/20/23 03:09 AST 31 U/L (15-37) 11/20/23 03:09 ALT 39 U/L (13-56) 11/20/23 03:09 Alkaline Phosphatase 106 U/L (45-117) D 11/20/23 03:09 Home Medications: Sertraline [Zoloft*] 50 mg PO BEDTIME 11/17/23 Cefpodoxime Proxetil 100 mg PO BID 11 Days #22 tab 11/20/23 Codeine/APAP [Tylenol W/Codeine #3 tab] 1 tab PO Q8HP PRN #5 tab 11/20/23 New Medications: Cefpodoxime Proxetil 100 mg PO BID 11 Days #22 tab Codeine/APAP [Tylenol W/Codeine #3 tab] 1 tab PO Q8HP PRN #5 tab PRN Reason: Pain Physician Discharge Instructions: Patient was admitted for left-sided pyelonephritis. She initially came to the emergency department on 11/16/2023 with complaints of back pain and was found to have mild pyelonephritis on CT scan, she had taken 1 dose of cephalexin about 12 hours prior to presentation to the emergency department. She had a urine culture obtained at that time which showed no growth, she returned back to the emergency department on 11/17/2023 with worsening pain and was admitted for left- sided pyelonephritis. Urine and blood cultures were obtained which were both without growth, her white blood cell count remained normal during hospitalization. She had some low-grade temps around 99 degrees. She had some worsening left anterior flank pain overnight on 11/18, for that reason a repeat CT scan was performed on 11/19 which showed new small bilateral pleural effusions, increasing periportal edema, increasing pelvic free fluid could be secondary to volume overload. No other specific etiology of the fluid identified. Is also noted the patient had large stool burden, had not had a bowel movement in few days. She was given MiraLAX and a suppository and was able to have a bowel movement, after having a bowel movement she had significant relief of her symptoms. Given her history of Lea-Danlos syndrome the possibility of nutcracker syndrome was discussed with radiology, it was noted that the left renal vein does have some mild mass effect by the SMA and aorta although the left gonadal vein is not dilated. There were some prominent venous collaterals in the retroperitoneum. Given the resolution of her significant left side abdominal pain after having a bowel movement it is likely that her pain was caused by significant stool burden/constipation. She has been tolerating her diet, pain is significant improved and she is stable for discharge at this time. Of note patient was also found to be iron deficient and anemic iron level 25 TIBC 281 transferrin 201 transferrin saturation percentage 8.9 ferritin 15.2 and hemoglobin remained around 8.5. Discussed this with patient and family recommend reinitiation of supplemental iron at home. At discharge the patient will be prescribed the following new medications: Cefpodoxime 100 mg by mouth twice daily for 11 additional days for total of 2 weeks of antibiotics Tylenol 3 as needed for pain Please resume iron supplementation-patient reports she has iron at home to take Please follow-up with your primary care doctor in 1 [address] scan report 11/19 pasted below FINDINGS: Lower chest: Small bilateral pleural effusions. Mild circumferential thickened distal esophagus. Liver: Periportal edema. No suspicious masses. Biliary: No biliary ductal dilatation. Stomach: No significant focal abnormality. Duodenum: No significant focal abnormality. Pancreas: No significant abnormality. Spleen: No significant abnormality. Adrenal: No suspicious lesions. Kidney/ureter: No hydronephrosis. No renal calculi. Too small to characterize and/or benign appearing renal lesions are noted. Some hypoenhancement noted in the upper pole the left kidney which was noted on the prior CT in could reflect changes of pyelonephritis but is nonspecific. Retroperitoneum: No retroperitoneal adenopathy. Vascular: No aneurysm. Bowel: No significant focal abnormality. Peritoneum: Moderate pelvic free fluid. Bladder: Grossly unremarkable. Reproductive: No adnexal masses. Bones: No acute fracture. Other: n/a IMPRESSION: New small bilateral pleural effusions, increasing periportal edema, and increasing pelvic free fluid could be secondary to volume overload. No other specific etiology of the fluid is identified. ADDENDUM: Discussed with Dr. Colvin regarding a possibility of nutcracker syndrome. The left renal vein does have some mild mass effect by the SMA and aorta. The left gonadal vein is not dilated, however there are some prominent venous collaterals in the retroperitoneum. Doppler ultrasound may be able to better evaluate. Diet: Regular Activity: Ad yashira Followup: SunOTOOT [Primary Care Provider] - 1-2 Weeks Time spent managing pt's care (in minutes): 30
== END 2023-11-20 09:50 | disposition home or self-care (01) | DRG 690 ==
LOC: ER 13:48 → 2ND 17:09
PROVIDERS: ADMIT Internal Medicine; ATTEND Hospitalist
DX: N10 Acute pyelonephritis (principal); Q79.60 Ehlers-Danlos syndrome, unspecified; F41.9 Anxiety disorder, unspecified; D50.9 Iron deficiency anemia, unspecified; Z79.899 Other long term (current) drug therapy; Z28.310 Unvaccinated for COVID-19
CPT/HCPCS: 36415; 71045; 74178; 80048; 80053; 80076; 81001; 81025; 82728; 83540; 83605; 83735; 84100; 84466; 85025; 85027; 87040; 87086; 87088; 96361; 96365; 96375; 99285; C9113; J0696; J1170; J1650; J2270; J2405; J2550; J7030; Q9967